=== PATIENT | female | born 1995 | race Caucasian/White ===

== ENCOUNTER 2019-09-26 12:07 | Emergency (ER) | payer OTHER, SELFPAY ==
--- NOTE | ~2019-09-26 | XR_ITS ---
EXAMINATION: XR chest 2V EXAM DATE: 09/26/2019 12:42 INDICATION: Shortness of breath, feeling lightheaded. TECHNIQUE: Frontal and lateral projections of the chest obtained and reviewed. There is no prior suhail dy for comparison. FINDINGS: The lungs are clear. There are no pleural effusions. The cardiomediastinal silhouette is within normal limits. There is no pneumothorax suspected. The bones and soft tissues are unremarkab le. IMPRESSION: Normal chest x-ray exam. Reviewed, dictated and finalized at location A. IMPRESSION: Normal chest x-ray exam.
[2019-09-26 12:11] VITALS: BP 110/88; PULSE 119; RESP 22; TEMP 36.6; O2SAT 100
--- NOTE | 2019-09-26 12:15 | PC.NURSE ---
Pt refusing IV, states she will allow for labs to be drawn only at this time.
[2019-09-26 12:16] VITALS: PULSE 119
--- NOTE | 2019-09-26 12:30 | ECG_ITS ---
Measurements Intervals [place] Rate: 101 P: 56 AR: 175 QRS: 37 QRSD: 86 T: 3 QT: 333 QTc: 433 Interpretive Statements SINUS TACHYCARDIA ST-T WAVE ABNORMALITY IN ANTERIOR LEADS- CONSIDER ISCHEMIA BASELINE WANDER- II, III ABNORMAL ECG Electronically Signed On 09-26-2019 15:10:44 CDT by Abdirahman Schreiber D.O.
--- NOTE | 2019-09-26 12:37 | ED.SYNCOPE ---
HPI - Syncope General Chief Complaint: Unspecified Stated Complaint: feeling like I'm going to pass out. Time Seen by Provider: 09/26/19 12:13 Source: patient Mode of arrival: ambulatory Limitations: no limitations History of Present Illness HPI narrative: The pt is a 23 y/o female who presents to the ED c/o feeling like she was going to pass out onset 1 day ago. Pt states that she was with her friends at 2300 yesterday when she began to experience this, resolved palpitations, resolved nausea, resolved chills, and MILLS. Pt states that these symptoms resolved after an hour. Pt denies lightheadedness, dizziness, CP, SOB, and fever. MD complaint: almost passed out Onset (ago): day(s) (1) Duration of episode: 60 -: minutes(s) Prodromal symptoms: none Current symptoms: headache, nausea (Resolved) and other (Chills (Resolved), Palpitations (Resolved)) Related Data Home Medications Medication Instructions Recorded Confirmed No Home Medications 09/26/19 09/26/19 Allergies Allergy/AdvReac Type Severity Reaction Status Date / Time No Known Allergies Allergy Verified 09/26/19 12:16 Review of Systems Review of Systems: Narrative: Review of Systems Constitutional: Positive for resolved chills. Negative for fever. Respiratory: Negative for shortness of breath. Cardiovascular: Positive for resolved palpitations. Negative for chest pain. Gastrointestinal: Positive for resolved nausea. Neurological: Positive for resolved feeling as if going to pass out and headache. Negative for lightheadedness and dizziness. All systems reviewed & are unremarkable except as noted in HPI and below PMFSH Past Medical History Medical History (Updated 09/27/19 @ 00:00 by Yair Samson) Anxiety Depression Migraines Surgical History Surgical History (Updated 09/26/19 @ 13:57 by Victor Hugo Latham) No history of previous surgery Social History Social History (Updated 09/26/19 @ 13:57 by Victor Hugo Latham) Smoking status: Never smoker Gender identity (if verbalized by the patient): Female Exam Narrative: Exam Narrative: Constitutional: Appears well-developed. No distress. HENT: Head: Normocephalic. Nose: Nose normal. Mouth/Throat: Oropharynx is clear and moist. Eyes: Conjunctiva are normal. Neck: Normal range of motion. Neck supple. Cardiovascular: Tachycardic and regular rhythm. Pulmonary/Chest: Effort normal and breath sounds normal. Abdominal: Soft. There is no tenderness. Musculoskeletal: Normal range of motion. No edema. Neurological: Alert and oriented to person, place, and time. Skin: Skin is warm. No pallor. Psychiatric: Normal mood and affect. Course Vital Signs Vital signs: Vital Signs Temperature 36.6 C 09/26/19 12:11 Pulse Rate 119 H 09/26/19 12:11 Respiratory Rate 22 H 09/26/19 12:11 Blood Pressure 110/88 09/26/19 12:11 Pulse Oximetry 100 09/26/19 12:11 Temperature 36.6 C 09/26/19 12:11 Pulse Rate 97 09/26/19 17:49 Respiratory Rate 18 09/26/19 17:49 Blood Pressure 131/78 09/26/19 17:49 Pulse Oximetry 99 09/26/19 17:49 MDM - Syncope Lab Data Result diagrams: 09/26/19 12:55 09/26/19 12:55 Labs: Lab Results 09/26/19 09/26/19 09/26/19 Range/Units 12:53 12:55 12:55 WBC 6.4 (4.5-10.0) K/mm3 RBC 4.89 (4.2-5.4) M/mm3 Hgb 14.5 (12.0-15.0) g/dL Hct 43.7 (37.0-47.0) % MCV 89.4 (80-100) fl MCH 29.7 (26-34) pg MCHC 33.2 (32-36) g/dl RDW 12.6 (11.5-14.5) % Plt Count 338 (150-375) k/mm3 MPV 10.4 (7.4-10.4) fl Immature Gran % (Auto) 0.2 (0-0.5) % Neut % (Auto) 57.2 (45.5-73.1) % Lymph % (Auto) 36.0 (18.3-44.2) % Levy % (Auto) 5.7 (2.6-8.5) % Eos % (Auto) 0.3 (0-4.4) % Baso % (Auto) 0.6 (0.2-1.2) % Lymph # (Auto) 2.32 (0.9-3.2) K/mm3 Levy # (Auto) 0.4 (0.1-0.6) K/mm3 Eos # (Auto) 0.0 (0-0.3) K/mm3 Baso # (Auto) 0.0 (0.0-0
[2019-09-26 13:02] LABS: Basophils Percent Auto 0.6 % (0.2-1.2); Eosinophils Percent Auto 0.3 % (0-4.4); Hematocrit 43.7 % (37.0-47.0); Hemoglobin 14.5 g/dL (12.0-15.0); Immature Granulocyte Absolute 0.01 K/mm3 (0.00-0.031); Immature Granulocyte Percent A 0.2 % (0-0.5); Lymphocytes Absolute Auto 2.32 K/mm3 (0.9-3.2); Mean Corpuscular HGB Conc 33.2 g/dl (32-36); Mean Corpuscular Hemoglobin 29.7 pg (26-34); Mean Corpuscular Volume 89.4 fl (80-100); Mean Platelet Volume 10.4 fl (7.4-10.4); Monocytes Absolute Auto 0.4 K/mm3 (0.1-0.6); Monocytes Percent Auto 5.7 % (2.6-8.5); Neutrophils Absolute Auto 3.7 K/mm3 (1.3-6.7); Neutrophils Percent Auto 57.2 % (45.5-73.1); Platelet Count Result 338 k/mm3 (150-375); Red Blood Count 4.89 M/mm3 (4.2-5.4); Red Cell Distribution Width 12.6 % (11.5-14.5); White Blood Count 6.4 K/mm3 (4.5-10.0)
[2019-09-26 13:17] LABS: Alanine Aminotransferase 14 U/L (4-35); Albumin Level 4.7 g/dL (3.5-5.1); Alkaline Phosphatase 57 U/L (38-126); Glucose 92 mg/dL (65-105)
[2019-09-26 13:18] LABS: Aspartate Amino Transferase 24 U/L (14-36); Bilirubin,Total 0.6 mg/dL (0.2-1.3); Blood Urea Nitrogen 9 mg/dL (7-17); Calcium 9.6 mg/dL (8.4-10.2); Carbon Dioxide 24 mmol/L (22-30); Chloride 104 mmol/L (98-107); Estimated Glomerular Filt Rate > 60; Potassium 3.7 mmol/L (3.4-5.0); Sodium 138 mmol/L (137-145)
[2019-09-26 14:53] VITALS: BP 122/74; PULSE 90; O2SAT 98
[2019-09-26 14:58] LABS: Troponin I < 0.012 ng/mL (0.000-0.034)
[2019-09-26 15:00] LABS: Add Urine Microscopic? YES; Amorphous Sediment Urine Few; Appearance Urine Cloudy (Clear); Bacteria Urine 1+ /hpf; Bilirubin Urine Negative (Negative); Blood Urine Negative (Negative); Color Urine Yellow (Yellow); Glucose Urine UA Negative (Negative); Ketones Urine 2+ mg/dL (Negative); Leukocyte Esterase Ur Trace LEU/UL (Negative); Mucus Urine Heavy /lpf; Nitrate Urine Negative (Negative); Protein Urine 1+ mg/dL (Negative); Specific Grav Ur 1.024 (1.001-1.035); Squamous Epithelial Cell Urine Many /hpf (Few)
--- NOTE | 2019-09-26 16:00 | PC.NURSE ---
pt refuses iv and iv fluids. provider notified
[2019-09-26 16:37] LABS: Troponin I < 0.012 ng/mL (0.000-0.034)
[2019-09-26 17:49] VITALS: BP 131/78; PULSE 97; RESP 18; O2SAT 99
== END 2019-09-26 17:54 | disposition home or self-care (01) ==
PROVIDERS: Emergency Provider Emergency Medicine
DX: R00.2 Palpitations (principal); R42 Dizziness and giddiness; R00.0 Tachycardia, unspecified; R94.31 Abnormal electrocardiogram [ECG] [EKG]
CPT/HCPCS: 36415; 71046; 80053; 81001; 81025; 84484; 85025; 93005; 99284

== ENCOUNTER 2019-10-10 13:31 | Emergency (ER) | payer OTHER, SELFPAY ==
--- NOTE | ~2019-10-10 | XR_ITS ---
EXAMINATION: XR chest 1V portable DATE: 10/10/2019 14:23 INDICATION: Chest pain TECHNIQUE: frontal view of the chest was obtained. COMPARISON: Chest radiograph dated 09/26/2019 FINDINGS: The lungs remain clear with no focal airspace opacities, pulmonary edema, pleural effusion or pneumot horax. The cardiomediastinal silhouette is normal. Visualized bones and soft tissues are unremarkable . IMPRESSION: 1. Normal chest radiograph. Reviewed, dictated and finalized at location B. IMPRESSION: 1. Normal chest radiograph.
[2019-10-10 13:38] VITALS: BP 146/126; PULSE 105; RESP 16; TEMP 36.4; O2SAT 98
--- NOTE | 2019-10-10 13:41 | ECG_ITS ---
Measurements Intervals [place] Rate: 100 P: 56 UT: 155 QRS: 32 QRSD: 94 T: 8 QT: 333 QTc: 429 Interpretive Statements SINUS TACHYCARDIA ST-T WAVE ABNORMALITY IN ANTEROLATERAL LEADS- CONSIDER ISCHEMIA ABNORMAL ECG Electronically Signed On 10-10-2019 15:08:37 CDT by Abdirahman Schreiber D.O.
--- NOTE | 2019-10-10 14:44 | ED.GENADULT ---
HPI - General Adult General Chief complaint: Chest Pain Stated complaint: Chest Pain Time Seen by Provider: 10/10/19 13:34 Source: patient Mode of arrival: ambulatory Limitations: no limitations History of Present Illness HPI narrative: Patient is a 23-year-old female who presents to emergency department for evaluation of pain across the chest is an aching pain nothing makes it better or worse noted the pain comes and goes has had similar occurrences in the past of unknown etiology patient does note that she does have anxiety which could be an etiology patient denies any URI symptoms dyspnea or other complaints and on arrival is resting comfortably in the room and has not taken anything for her symptoms Related Data Home Medications Medication Instructions Recorded Confirmed No Home Medications 09/26/19 09/26/19 Allergies Allergy/AdvReac Type Severity Reaction Status Date / Time No Known Allergies Allergy Verified 09/26/19 12:16 Review of Systems Review of Systems: All systems reviewed & are unremarkable except as noted in HPI and below PMFSH Past Medical History Medical History Anxiety Depression Migraines Surgical History Surgical History No history of previous surgery Social History Social History Smoking status: Never smoker Gender identity (if verbalized by the patient): Female Exam Narrative: Exam Narrative: GENERAL: Well-appearing, well-nourished, and in no acute distress. HEAD: Normocephalic, atraumatic. EYES: PERRLA and EOMI. ENT: Nares clear, no rhinorrhea or epistaxis. Mucous membranes moist. CHEST: Clear to auscultation. No respiratory distress. No wheezes rales or rhonchi HEART: Regular rate and rhythm. No murmur heard. Normal peripheral pulses. ABDOMEN: Soft, nontender, nondistended EXTREMITIES: Normal range of motion. No edema. SKIN: Warm, dry, no rash. NEURO: No focal deficits. Alert and oriented x3. PSYCH: Normal mood and affect. Course Course Emergency Course: Patient in the room in no distress aware of case findings treatment plan and diagnosis agreeing to follow-up as directed Vital Signs Vital signs: Vital Signs Temperature 97.5 F L 10/10/19 13:38 Pulse Rate 105 H 10/10/19 13:38 Respiratory Rate 16 10/10/19 13:38 Blood Pressure 146/126 H 10/10/19 13:38 Pulse Oximetry 98 10/10/19 13:38 Temperature 97.5 F L 10/10/19 13:38 Pulse Rate 105 H 10/10/19 13:38 Respiratory Rate 16 10/10/19 13:38 Blood Pressure 146/126 H 10/10/19 13:38 Pulse Oximetry 98 10/10/19 13:38 Medical Decision Making MDM Narrative Medical decision making narrative: Patients EKG and chest x-ray without high risk changes in the room in no distress resting comfortably patient's prior visit was unremarkable EKG is unremarkable in comparison to prior visit Vital Signs Vital Signs: Vital Signs Temperature 97.5 F L 10/10/19 13:38 Pulse Rate 105 H 10/10/19 13:38 Respiratory Rate 16 10/10/19 13:38 Blood Pressure 146/126 H 10/10/19 13:38 Pulse Oximetry 98 10/10/19 13:38 Temperature 97.5 F L 10/10/19 13:38 Pulse Rate 105 H 10/10/19 13:38 Respiratory Rate 16 10/10/19 13:38 Blood Pressure 146/126 H 10/10/19 13:38 Pulse Oximetry 98 10/10/19 13:38 Imaging Data Radiologist's impression: ITS Impressions Chest X-Ray 10/10/19 14:26 IMPRESSION: 1. Normal chest radiograph. ECG Data EKG #1: ECG completion date: 10/10/19 ECG completion time: 13:38 EKG Interpretation: tachycardia, non-specific ST changes, normal QRS and NL axis Discharge Plan Discharge Clinical Impression: Chest pain Patient Disposition: Home, Self-Care Condition: Stable Instructions: Antibiotic Form, Chest Pain (ED) Additional Instructions: Follow up with your
[2019-10-10 15:19] VITALS: BP 92/53; PULSE 66; RESP 14; O2SAT 96
[2019-10-10 15:22] VITALS: BP 92/53; PULSE 93; RESP 20; O2SAT 96
== END 2019-10-10 15:25 | disposition home or self-care (01) ==
PROVIDERS: Emergency Provider Emergency Medicine
DX: R07.9 Chest pain, unspecified (principal); R00.0 Tachycardia, unspecified
CPT/HCPCS: 71045; 93005; 99283

== ENCOUNTER 2019-10-11 13:29 | Emergency (ER) | payer OTHER, SELFPAY ==
--- NOTE | ~2019-10-11 | XR_ITS ---
XR chest 2V DATE: 10/11/2019 14:06 INDICATION: Midsternal chest pain. Bilateral hand numbness. TECHNIQUE: PA and lateral views COMPARISON: 10/10/2019 portable AP chest at 1415 hours FINDINGS: Normal heart size. No hilar or mediastinal enlargement. No pulmonary infiltrate or consolid ation, pleural effusion or pulmonary vascular congestion or pneumothorax. IMPRESSION: No active cardiopulmonary disease Reviewed, dictated and finalized at location A.
[2019-10-11 13:31] VITALS: BP 140/66; PULSE 79; RESP 20; TEMP 36.3; O2SAT 100
--- NOTE | 2019-10-11 13:43 | ECG_ITS ---
Measurements Intervals [place] Rate: 85 P: 31 HI: 141 QRS: 4 QRSD: 92 T: 22 QT: 361 QTc: 431 Interpretive Statements SINUS RHYTHM WITH SINUS ARRHYTHMIA ST-T WAVE ABNORMALITY IN ANTERIOR LEADS- CONSIDER ISCHEMIA BASELINE WANDER- II, III ABNORMAL ECG Electronically Signed On 10-11-2019 14:46:10 CDT by Abdirahman Schreiber D.O.
--- NOTE | 2019-10-11 13:44 | ED.GENADULT ---
HPI - General Adult General Chief complaint: Unspecified Stated complaint: aline hand numbness/chest pain Time Seen by Provider: 10/11/19 13:39 Source: patient Mode of arrival: ambulatory Limitations: no limitations History of Present Illness HPI narrative: A 23 y/o female presents to the ED with c/o bilateral hand numbness. Pt states that she was seen at [facility] yesterday for the same symptoms. She adds that her symptoms started on 09/08/19 and have been constant since. Pt reports MILLS and CP that radiates to her neck, back, and shoulder, but denies cough, congestion, N/V, and fever. She took Tylenol last night for her symptoms with no relief. MD complaint: bilateral hand numbness Onset (ago): day(s) (2) Location: upper extremity (bilateral hand) Severity: similar to prior episodes Quality: other (numbness) Pain Consistency: constant Relieving factors: none Associated symptoms: chest pain (radiates to neck, back, shoulder) and headaches Related Data Home Medications Medication Instructions Recorded Confirmed No Home Medications 09/26/19 09/26/19 Allergies Allergy/AdvReac Type Severity Reaction Status Date / Time No Known Allergies Allergy Verified 09/26/19 12:16 Review of Systems Review of Systems: All systems reviewed & are unremarkable except as noted in HPI and below Constitutional: Constitutional: Denies fever(s) ENT: Denies nasal congestion Cardiovascular: Cardiovascular: Reports chest pain (radiates to neck, back, shoulder) Respiratory: Respiratory: Denies cough Gastrointestinal: Gastrointestinal: Denies nausea and Denies vomiting Neurologic: Reports headache(s) and Reports numbness (bilateral hand) PMFSH Past Medical History Medical History Anxiety Depression Migraines Surgical History Surgical History No history of previous surgery Social History Social History Smoking status: Never smoker Gender identity (if verbalized by the patient): Female Exam Const: General: healthy appearing and no acute distress Nutritional Appearance: well nourished HENMT: Mouth: Yes lip normal and Yes moist mucous membranes Eyes: Conjunctivae: conjunctivae normal Pupils: Equal, round and reactive pupils present Resp: Effort & Inspection: normal respiratory effort Auscultation: clear to auscultation bilaterally Cardio: Jugular venous distension: no JVD Rate: regular rate Rhythm: regular rhythm Heart sounds: no murmurs GI: GI Palp: Yes Soft to palpation and No Tenderness to palpation present (GI) Auscultation: normal bowel sounds Back/Spine/Pelvis: Back: other (full ROM) Skin: General skin exam: normal color, dry skin and other (warm) Neuro: General: patient oriented x3 (alert) Speech: normal speech Extrem: General: full ROM Psych: Mental Status: mental status grossly normal Affect: Anxious affect present Course Vital Signs Vital signs: Vital Signs Temperature 36.3 C L 10/11/19 13:31 Pulse Rate 79 10/11/19 13:31 Respiratory Rate 20 10/11/19 13:31 Blood Pressure 140/66 10/11/19 13:31 Pulse Oximetry 100 10/11/19 13:31 Temperature 36.3 C L 10/11/19 13:31 Pulse Rate 76 10/11/19 15:13 Respiratory Rate 18 10/11/19 15:13 Blood Pressure 122/78 10/11/19 15:13 Pulse Oximetry 98 10/11/19 15:13 Medical Decision Making MDM Narrative Medical decision making narrative: Symptoms seem to be most consistent with anxiety. EKG is abnormal, but unchanged from prior visits. x-ray and labs reassuring. Vital Vital Signs Vital Signs: Vital Signs Temperature 36.3 C L 10/11/19 13:31 Pulse Rate 79 10/11/19 13:31 Respiratory Rate 20 10/11/19 13:31 Blood Pressure 140/66 10/11/19 13:31 Pulse Oximetry 100 10/11/19 13:31 Temperature 36.3 C L 10/11/19 13:31 Pulse Rate 76 10/11/19 15:13 Respiratory Ra
[2019-10-11 13:55] LABS: Basophils Percent Auto 0.6 % (0.2-1.2); Eosinophils Percent Auto 0.3 % (0-4.4); Hematocrit 44.2 % (37.0-47.0); Hemoglobin 14.6 g/dL (12.0-15.0); Immature Granulocyte Absolute 0.02 K/mm3 (0.00-0.031); Immature Granulocyte Percent A 0.3 % (0-0.5); Lymphocytes Absolute Auto 1.66 K/mm3 (0.9-3.2); Lymphocytes Percent Auto 25.3 % (18.3-44.2); Mean Corpuscular Hemoglobin 29.9 pg (26-34); Mean Corpuscular Volume 90.4 fl (80-100); Mean Platelet Volume 10.9 fl (7.4-10.4); Monocytes Absolute Auto 0.5 K/mm3 (0.1-0.6); Monocytes Percent Auto 7.5 % (2.6-8.5); Neutrophils Absolute Auto 4.3 K/mm3 (1.3-6.7); Platelet Count Result 292 k/mm3 (150-375); Red Blood Count 4.89 M/mm3 (4.2-5.4); Red Cell Distribution Width 13.2 % (11.5-14.5); White Blood Count 6.6 K/mm3 (4.5-10.0)
[2019-10-11 14:05] LABS: INR 0.9; Prothrombin Time 12.3 Seconds (11.1-14.7)
[2019-10-11 14:06] LABS: Blood Urea Nitrogen 8 mg/dL (7-17); Calcium 9.6 mg/dL (8.4-10.2); Carbon Dioxide 26 mmol/L (22-30); Chloride 106 mmol/L (98-107); Estimated Glomerular Filt Rate > 60; Glucose 102 mg/dL (65-105); Partial Thromboplastin Time 31.5 SECONDS (22.3-36.8); Potassium 3.6 mmol/L (3.4-5.0); Sodium 140 mmol/L (137-145)
[2019-10-11 14:18] LABS: Troponin I < 0.012 ng/mL (0.000-0.034)
[2019-10-11 15:13] VITALS: BP 122/78; PULSE 76; RESP 18; O2SAT 98
== END 2019-10-11 15:16 | disposition home or self-care (01) ==
PROVIDERS: Emergency Provider Emergency Medicine
DX: R07.89 Other chest pain (principal); R94.31 Abnormal electrocardiogram [ECG] [EKG]
CPT/HCPCS: 36415; 71046; 80048; 84484; 85025; 85610; 85730; 93005; 99284

== ENCOUNTER 2020-02-06 09:57 | Outpatient (CLI) | payer OTHER, SELFPAY ==
--- NOTE | ~2020-02-06 | US_ITS ---
EXAMINATION: US OB <= 14 weeks fetus DATE: 02/06/2020 11:00 INDICATION: Routine care, first trimester TECHNIQUE: Real-time pelvic transabdominal and transvaginal ultrasound was performed. COMPARISON: None. FINDINGS: The uterus measures 10.0 x 7.5 x 9.0 cm. There is an intrauterine gestational sac. A yolk sac is identified. heart motion is identified measuring 165 beats per minute (bpm) by M-mode Do ppler. The crown rump length measures 5.7 cm , which correlates with an estimated gestational a ge of 12 weeks and 2 day(s) (+/-) 8 day(s). The right ovary measures 4.5 x 2.2 x 3.1 cm. The left ovary measures 2.3 x 0.8 x 2.1 cm. There is nor mal vascular flow in the ovaries. There is no free fluid in the pelvis. IMPRESSION: 1. Live intrauterine with an estimated gestational age of 12 weeks and 2 day(s) (+/-) 8 day (s) and an estimated delivery date of 08/18/2020. Reviewed, dictated and finalized at location B. IMPRESSION: 1. Live intrauterine with an estimated gestational age of 12 weeks an d 2 day(s) (+/-) 8 day(s) and an estimated delivery date of 08/18/2020.
== END 2020-02-06 09:58 | disposition home or self-care (01) ==
PROVIDERS: Visit Provider Physician Assistant
DX: Z34.91 Encounter for supervision of normal pregnancy, unspecified, first trimester (principal); Z3A.12 12 weeks gestation of pregnancy
CPT/HCPCS: 76801

== ENCOUNTER 2020-02-22 18:56 | Emergency (ER) | payer OTHER, SELFPAY ==
--- NOTE | ~2020-02-22 | XR_ITS ---
XR chest 1V portable DATE: 02/22/2020 19:18 INDICATION: Generalized chest pain. Cough, shortness of breath. TECHNIQUE: Portable AP chest on 02/22/2020 at 1917 hours COMPARISON: 10/11/2019 PA and lateral chest FINDINGS: Normal heart size. No pulmonary infiltrate or consolidation, pleural effusion or pulmonary vascular congestion or pneumo thorax. IMPRESSION: No active cardiopulmonary disease Reviewed, dictated and finalized at location A.
[2020-02-22 19:01] VITALS: BP 136/63; PULSE 91; RESP 20; TEMP 36.7; O2SAT 97
[2020-02-22 19:03] VITALS: O2SAT 100
--- NOTE | 2020-02-22 19:04 | ECG_ITS ---
Measurements Intervals [place] Rate: 82 P: 30 RI: 149 QRS: 43 QRSD: 90 T: -6 QT: 359 QTc: 422 Interpretive Statements SINUS RHYTHM WITH SINUS ARRHYTHMIA NONSPECIFIC ST & T-WAVE ABNORMALITY- ANTEROLAT/INF LEADS BORDERLINE ECG Electronically Signed On 02-23-2020 6:55:38 CDT by Abdirahman Schreiber D.O.
--- NOTE | 2020-02-22 19:09 | ED.CHESTPAIN ---
HPI - Chest Pain General Chief Complaint: Chest Pain Stated Complaint: Chest Pain Since Last Night, 14 week Preg Time Seen by Provider: 02/22/20 19:01 Source: patient History of Present Illness HPI narrative: 24 years old white female complaining of intermittent chest pain for the last 2 to 3 days, lightheadedness, numbness and tingling of the feet and hands, a lot of stress lately. Patient is 14 weeks , denying any fever, chills, nausea, vomiting, shortness of breath, back pain, abdominal pain, vaginal bleeding or discharge, urinary symptoms. Patient denies smoking, drinking or using drugs. Patient works at [employer] and lives with her mom Related Data Home Medications Medication Instructions Recorded Confirmed No Home Medications 09/26/19 09/26/19 Allergies Allergy/AdvReac Type Severity Reaction Status Date / Time No Known Allergies Allergy Verified 02/22/20 19:04 Review of Systems Review of Systems: Narrative: CONSTITUTIONAL: Denies fever, chills, or sweats. EYES: Denies visual changes, redness, or discharge. ENT: Denies rhinorrhea, congestion, sore throat, or otalgia. CARDIOVASCULAR: Denies chest pain, palpitations, or edema. RESPIRATORY: Denies cough or dyspnea. GASTROINTESTINAL: Denies abdominal pain, nausea, vomiting, or diarrhea. GENITOURINARY: Denies dysuria or hematuria. SKIN: Denies rash or itching. MUSCULOSKELETAL: Denies back pain, joint pain, or myalgia. NEUROLOGIC: Denies headache, numbness, or weakness. PSYCHIATRIC: Denies anxiety or depression. PMFSH Past Medical History Medical History Anxiety Depression Migraines Surgical History Surgical History No history of previous surgery Social History Social History Smoking status: Never smoker Gender identity (if verbalized by the patient): Female Exam Narrative: Exam Narrative: General appearance: Well-developed, well-nourished Skin: Normal color Head: Normocephalic, nontraumatic Eyes: Clear conjunctiva ENT: Oropharynx normal, ears normal, nose normal Neck: Supple, nontender Chest and respiratory: Airway patent, no respiratory distress, no accessory muscle use Heart: Regular rate/rhythm Abdomen: Soft, nontender, no organomegaly, quiet bowel sounds Vascular: Normal peripheral pulses, normal capillary refill. Musculoskeletal: Normal range of motion, nontender back Neurologic: Alert and oriented ?3, [employer] is normal as tested, no gross motor deficit Course Course Emergency Course: Stable Vital Signs Vital signs: Vital Signs Temperature 36.7 C 02/22/20 19:01 Pulse Rate 91 02/22/20 19:01 Respiratory Rate 20 02/22/20 19:01 Blood Pressure 136/63 02/22/20 19:01 Pulse Oximetry 97 02/22/20 19:01 Temperature 36.7 C 02/22/20 19:01 Pulse Rate 91 02/22/20 19:01 Respiratory Rate 20 02/22/20 19:01 Blood Pressure 136/63 02/22/20 19:01 Pulse Oximetry 100 02/22/20 19:03 MDM - Chest Pain MDM Narrative Medical decision making narrative: Patient is 14 weeks , a lot of stress lately, history of anxiety and depression denying any drugs, does not have any risk factors for coronary disease or pulmonary embolism. Patient denies shortness of breath or leg pain. My plan to get EKG, chest x-ray, UA and heart tone. ECG Data EKG #1: ECG completion date: 02/22/20 ECG completion time: 20:01 Interpretation: Normal sinus rhythm at 82 bpm, nonspecific ST and T wave abnormality, borderline EKG, no old EKG for comparison Critical Care Time Critical Care T
[2020-02-22 20:30] VITALS: BP 118/80; PULSE 80; RESP 18; TEMP 36.8; O2SAT 98
== END 2020-02-22 20:39 | disposition home or self-care (01) ==
LOC: ANHED 20:18
PROVIDERS: Emergency Provider Emergency Medicine
DX: O26.892 Other specified pregnancy related conditions, second trimester (principal); R07.9 Chest pain, unspecified; O99.342 Other mental disorders complicating pregnancy, second trimester; F41.9 Anxiety disorder, unspecified; R94.31 Abnormal electrocardiogram [ECG] [EKG]; Z3A.14 14 weeks gestation of pregnancy
CPT/HCPCS: 71045; 93005; 99283

== ENCOUNTER 2020-03-02 03:44 | Emergency (ER) | payer OTHER, SELFPAY ==
[2020-03-02 03:50] VITALS: BP 107/66; PULSE 85; RESP 16; TEMP 36.6; O2SAT 100
--- NOTE | 2020-03-02 04:58 | ED.ABDPAIN ---
HPI - Abdominal Pain General Chief Complaint: Vaginal Bleeding Stated Complaint: 16 wks preg, vag bld Time Seen by Provider: 03/02/20 04:58 Source: patient Mode of arrival: ambulatory Limitations: no limitations History of Present Illness HPI narrative: Patient is a G1, P0 currently 16 weeks dated by ultrasound who presents for evaluation of vaginal bleeding. Patient reportedly awakened to urinate early this morning, noticed some red, bloody discharge. She denies any pelvic pain, cramping or other loss of fluids. No fever, nausea or vomiting. She reports earlier in the week she did have some dysuria and frequency that she states has resolved. She denies other vaginal discharge. No recent sexual intercourse. No vaginal trauma. Patient's has required intrauterine progesterone. No other known complications per patient. Related Data Allergies Allergy/AdvReac Type Severity Reaction Status Date / Time No Known Allergies Allergy Verified 02/22/20 19:04 Review of Systems Review of Systems: Narrative: CONSTITUTIONAL: Denies fever CARDIOVASCULAR: Denies chest pain RESPIRATORY: Denies cough or dyspnea. GASTROINTESTINAL: Denies abdominal pain : Reports vaginal bleeding SKIN: Denies rash MUSCULOSKELETAL: Denies back pain NEUROLOGIC: Denies headache [facility] Past Medical History Medical History Anxiety Depression Migraines Surgical History Surgical History No history of previous surgery Social History Social History Smoking status: Never smoker Gender identity (if verbalized by the patient): Female Exam Narrative: Exam Narrative: GENERAL: Awake, alert, conversant HEAD: Normocephalic, atraumatic. EYES: PERRLA and EOMI. ENT: Nares clear, no rhinorrhea or epistaxis. Mucous membranes moist. NECK: Supple. CHEST: No respiratory distress, breathing even and non labored HEART: Regular rate, sinus rhythm ABDOMEN:Non distended, non tender : Labia majora and minora normal without lesions. Vagina without blood. No cervical motion tenderness. No adnexal tenderness or fullness bilaterally. Discharge present. EXTREMITIES: Normal range of motion. No edema. SKIN: Warm, dry, no rash. NEURO:No focal deficits. Alert and oriented x3 Course Vital Signs Vital signs: Vital Signs Temperature 36.6 C 03/02/20 03:50 Pulse Rate 85 03/02/20 03:50 Respiratory Rate 16 03/02/20 03:50 Blood Pressure 107/66 03/02/20 03:50 Pulse Oximetry 100 03/02/20 03:50 Temperature 36.6 C 03/02/20 03:50 Pulse Rate 85 03/02/20 03:50 Respiratory Rate 16 03/02/20 03:50 Blood Pressure 107/66 03/02/20 03:50 Pulse Oximetry 100 03/02/20 03:50 MDM - Abdominal Pain MDM Narrative Medical decision making narrative: Patient presenting for evaluation of light vaginal bleeding in the setting of second trimester . Patient is well-appearing with stable vital signs and a benign abdominal exam. Her cervical exam shows no blood. No cervical motion tenderness or evidence of cervicitis or PID. Patient's hemoglobin and hematocrit is stable. Blood type is B+ does not require any RhoGam administration. heart tones documented in the 160s, with good movement. Urinalysis has some white blood cells present, given she had had some frequency and dysuria I think that we need to treat symptomatically, will cover with Macrobid. Spoke with Dr. Spangler who agreed with management, did not recommend obtaining any sort of formal ultrasound given good heart tones and reassuring laboratory studies. Patient was then discharged to follow-up with Dr. Amos. Differential Diagnosis Differential diagnosis: Likely abdominal pain and other (Threatened miscarriage, cervicitis, UTI) Lab Data Attestation: I reviewed the patient's lab results. Result d
--- NOTE | 2020-03-02 05:45 | PC.NURSE ---
Patient refusing IV stating, I cannot do IVs. I have never needed one anytime I have been here.
[2020-03-02 06:17] LABS: Basophils Percent Auto 0.3 % (0.2-1.2); Eosinophils Absolute Auto 0.1 K/mm3 (0-0.3); Eosinophils Percent Auto 0.8 % (0-4.4); Hematocrit 39.5 % (37.0-47.0); Hemoglobin 13.9 g/dL (12.0-15.0); Immature Granulocyte Absolute 0.01 K/mm3 (0.00-0.031); Immature Granulocyte Percent A 0.1 % (0-0.5); Lymphocytes Absolute Auto 2.32 K/mm3 (0.9-3.2); Lymphocytes Percent Auto 30.7 % (18.3-44.2); Mean Corpuscular HGB Conc 35.2 g/dl (32-36); Monocytes Absolute Auto 0.4 K/mm3 (0.1-0.6); Monocytes Percent Auto 5.6 % (2.6-8.5); Neutrophils Absolute Auto 4.7 K/mm3 (1.3-6.7); Neutrophils Percent Auto 62.5 % (45.5-73.1); Platelet Count Result 292 k/mm3 (150-375); Red Blood Count 4.49 M/mm3 (4.2-5.4); Red Cell Distribution Width 12.8 % (11.5-14.5); White Blood Count 7.6 K/mm3 (4.5-10.0)
[2020-03-02 06:21] LABS: Add Urine Microscopic? YES; Appearance Urine Clear (Clear); Bilirubin Urine Negative (Negative); Blood Urine 1+ (Negative); Color Urine Yellow (Yellow); Glucose Urine UA Negative (Negative); Ketones Urine Negative (Negative); Leukocyte Esterase Ur Negative LEU/UL (Negative); Mucus Urine Few /lpf; Nitrate Urine Negative (Negative); Protein Urine Negative (Negative); Specific Grav Ur 1.009 (1.001-1.035); Squamous Epithelial Cell Urine Rare /hpf (Few); Urobilinogen Urine Negative mg/dL (<2.0)
[2020-03-02 06:50] VITALS: BP 107/59; PULSE 85; RESP 16; O2SAT 99
[2020-03-02 06:51] VITALS: BP 102/59; BP 103/57; PULSE 56; PULSE 93
== END 2020-03-02 07:05 | disposition home or self-care (01) ==
PROVIDERS: Emergency Provider Emergency Medicine
DX: O20.9 Hemorrhage in early pregnancy, unspecified (principal); Z3A.16 16 weeks gestation of pregnancy
CPT/HCPCS: 36415; 81001; 84702; 85025; 85461; 87070; 87491; 87591; 87808; 99284

== ENCOUNTER 2020-03-25 18:44 | Emergency (ER) | payer OTHER, SELFPAY ==
--- NOTE | ~2020-03-25 | XR_ITS ---
EXAMINATION: XR chest 2V DATE: 03/25/2020 19:39 INDICATION: Midsternal chest pain. TECHNIQUE: Frontal and lateral views of the chest were obtained. COMPARISON: Chest single view 02/22/2020 FINDINGS: The chest demonstrates clear lungs without pneumonia, pleural effusion, or pneumothorax. Th e heart size is normal. IMPRESSION: 1. No acute cardiopulmonary disease. Reviewed, dictated and finalized at location A.
--- NOTE | 2020-03-25 18:47 | ECG_ITS ---
Measurements Intervals [place] Rate: 81 P: 23 MO: 158 QRS: 33 QRSD: 83 T: -4 QT: 360 QTc: 418 Interpretive Statements SINUS RHYTHM WITH SINUS ARRHYTHMIA BORDERLINE ST-T WAVE ABNORMALITY- ANTEROLAT/INF LEADS BASELINE WANDER- V4 BORDERLINE ECG Electronically Signed On 03-26-2020 6:59:09 CDT by Abdirahman Schreiber D.O.
[2020-03-25 18:49] VITALS: BP 112/72; PULSE 80; RESP 18; TEMP 36.2; O2SAT 100
--- NOTE | 2020-03-25 19:03 | ED.CHESTPAIN ---
HPI - Chest Pain General Chief Complaint: Chest Pain Stated Complaint: chest pains and im (20weeks) Time Seen by Provider: 03/25/20 19:02 Source: patient Mode of arrival: ambulatory Limitations: no limitations History of Present Illness HPI narrative: Patient is a 24-year-old female G1, P0 currently 20 weeks who presents to the emergency department for evaluation of chest pain. Pain is currently resolved. Pain has been intermittent over the past 48 hours, described as dull, aching in nature at times there is a sharp component to it. She denies concurrent back pain, nausea, vomiting, shortness of breath. No fever, rhinorrhea or cough. She denies any pain with a deep breath. She denies leg swelling, calf pain or redness. No history of coagulopathy or history of previous DVT. No recent long car or air travel. This has been uncomplicated thus far. She follows with Dr. Amos. Pt denies any vaginal bleeding, discharge, loss of fluids. No contraction like pain or abdominal pain. Pt feeling baby movement. Related Data Home Medications Medication Instructions Recorded Confirmed aspirin 03/25/20 03/25/20 folic acid 03/25/20 Allergies Allergy/AdvReac Type Severity Reaction Status Date / Time No Known Allergies Allergy Verified 03/25/20 18:45 Review of Systems Review of Systems: Narrative: CONSTITUTIONAL: Denies fever, chills, or sweats. ENT: Denies rhinorrhea, congestion, sore throat, or otalgia. CARDIOVASCULAR: Denies current chest pain, palpitations, or edema. RESPIRATORY: Denies cough or dyspnea. GASTROINTESTINAL: Denies abdominal pain, nausea, vomiting, or diarrhea. GENITOURINARY: Denies dysuria or hematuria. SKIN: Denies rash or itching. MUSCULOSKELETAL: Denies back pain, joint pain, or myalgia. NEUROLOGIC: Denies headache, numbness, or weakness. [facility] Social History Social History Smoking status: Never smoker Gender identity (if verbalized by the patient): Female Exam Narrative: Exam Narrative: GENERAL: Awake, alert, conversant HEAD: Normocephalic, atraumatic. EYES: PERRLA and EOMI. ENT: Nares clear, no rhinorrhea or epistaxis. Mucous membranes moist. NECK: Supple. CHEST: No respiratory distress, breathing even and non labored, no chest wall pain HEART: Regular rate, sinus rhythm ABDOMEN:Non distended, non tender EXTREMITIES: Normal range of motion. No edema. No calf tenderness bilaterally. No erythema or rash. Negative Claus sign. SKIN: Warm, dry, no rash. NEURO:No focal deficits. Alert and oriented x3 Course Vital Signs Vital signs: Vital Signs Temperature 36.2 C L 03/25/20 18:49 Pulse Rate 80 03/25/20 18:49 Respiratory Rate 18 03/25/20 18:49 Blood Pressure 112/72 03/25/20 18:49 Pulse Oximetry 100 03/25/20 18:49 Temperature 36.2 C L 03/25/20 18:49 Pulse Rate 94 03/25/20 21:21 Respiratory Rate 16 03/25/20 21:21 Blood Pressure 111/98 H 03/25/20 21:21 Pulse Oximetry 98 03/25/20 21:21 MDM - Chest Pain MDM Narrative Medical decision making narrative: Patient presented for evaluation of chest pain in the setting of . No current chest pain in the ER. EKG with nonspecific ST segment changes. On EKG, no ST elevation or depression. No findings consistent of pericarditis. No infectious symptoms concerning for myocarditis. No evidence of pneumonia no cover type features. No concerning type symptoms. Patient with good heart tones, good movement, no vaginal bleeding, contraction-like pain or loss of fluids. Patient's EKG and labs are without significant high risk changes. Cardiac risk factors reviewed. Patient is felt low risk for ACS and reasonable for further risk stratification testing as an outpatient. Pain was not sudden or maximal or onset without tearing or ripping quality. No other signs or symptoms to suggest aortic dissection. A low risk well'
[2020-03-25] MEDS: ASPIRIN 81 MG CHEWABLE TABLET 324 MG PO (19:14)
--- NOTE | 2020-03-25 19:15 | PC.NURSE ---
pt refusing PIV at this time. continues to rest on stretcher; will continue to monitor pt for baseline status changes. pt remains on monitor.
[2020-03-25 19:17] LABS: Basophils Percent Auto 0.3 % (0.2-1.2); Eosinophils Absolute Auto 0.1 K/mm3 (0-0.3); Eosinophils Percent Auto 0.7 % (0-4.4); Hematocrit 35.5 % (37.0-47.0); Hemoglobin 12.5 g/dL (12.0-15.0); Immature Granulocyte Absolute 0.02 K/mm3 (0.00-0.031); Immature Granulocyte Percent A 0.2 % (0-0.5); Lymphocytes Absolute Auto 2.46 K/mm3 (0.9-3.2); Mean Corpuscular HGB Conc 35.2 g/dl (32-36); Mean Corpuscular Hemoglobin 31.4 pg (26-34); Mean Corpuscular Volume 89.2 fl (80-100); Mean Platelet Volume 10.6 fl (7.4-10.4); Monocytes Absolute Auto 0.5 K/mm3 (0.1-0.6); Monocytes Percent Auto 5.5 % (2.6-8.5); Neutrophils Absolute Auto 5.7 K/mm3 (1.3-6.7); Neutrophils Percent Auto 65.3 % (45.5-73.1); Platelet Count Result 319 k/mm3 (150-375); Red Blood Count 3.98 M/mm3 (4.2-5.4); White Blood Count 8.8 K/mm3 (4.5-10.0)
[2020-03-25 19:25] VITALS: BP 106/80; PULSE 79; RESP 18; O2SAT 96
[2020-03-25 19:28] LABS: Anion Gap 8 mmol/L (8-16); Blood Urea Nitrogen 4 mg/dL (7-17); Calcium 9.6 mg/dL (8.4-10.2); Carbon Dioxide 25 mmol/L (22-30); Chloride 102 mmol/L (98-107); Estimated Glomerular Filt Rate > 60; Glucose 90 mg/dL (65-105); Potassium 3.4 mmol/L (3.4-5.0); Sodium 135 mmol/L (137-145)
[2020-03-25 19:29] LABS: INR 0.9; Prothrombin Time 12.2 Seconds (11.1-14.7)
[2020-03-25 19:30] LABS: Partial Thromboplastin Time 29.4 SECONDS (22.3-36.8)
[2020-03-25 19:32] LABS: D Dimer 0.41 ug/mL (<0.48)
[2020-03-25 19:40] LABS: Troponin I < 0.012 ng/mL (0.000-0.034)
[2020-03-25 20:01] VITALS: PULSE 71
[2020-03-25 21:21] VITALS: BP 111/98; PULSE 94; RESP 16; O2SAT 98
== END 2020-03-25 21:21 | disposition home or self-care (01) ==
PROVIDERS: Emergency Medicine; Emergency Provider Emergency Medicine
DX: O99.89 Other specified diseases and conditions complicating pregnancy, childbirth and the puerperium (principal); R07.89 Other chest pain; Z3A.20 20 weeks gestation of pregnancy
CPT/HCPCS: 36415; 71046; 80048; 84484; 85025; 85380; 85610; 85730; 93005; 99284; A9270

== ENCOUNTER 2020-03-26 07:05 | Outpatient (CLI) | payer OTHER, SELFPAY ==
--- NOTE | ~2020-03-26 | US_ITS ---
EXAMINATION:US venous doppler LE BI INDICATION:22 weeks . Atypical chest pain. Leg swelling. TECHNIQUE: Multiple grayscale, color flow and Doppler images of the right and left lower extremity de ep venous systems were obtained and reviewed. COMPARISON:No prior studies for comparison. FINDINGS: The common femoral, superficial femoral and popliteal veins demonstrate normal respiratory variation, augmentation and compressibility. Color flow is also seen within the posterior tibial, pe roneal, greater saphenous and profunda veins. IMPRESSION: 1: No lower extremity deep venous thrombosis. Reviewed, dictated and finalized at location B.
== END 2020-03-26 07:06 | disposition home or self-care (01) ==
PROVIDERS: PCP Obstetrics & Gynecology; Visit Provider Emergency Medicine
DX: R07.89 Other chest pain (principal); Z34.92 Encounter for supervision of normal pregnancy, unspecified, second trimester; Z3A.22 22 weeks gestation of pregnancy
CPT/HCPCS: 93970

== ENCOUNTER 2020-04-07 09:41 | Outpatient (CLI) | payer OTHER, SELFPAY ==
--- NOTE | ~2020-04-07 | US_ITS ---
EXAMINATION: US OB /maternal detail EXAM DATE: 04/07/2020 10:30 INDICATION: care. 2nd trimester. TECHNIQUE: Pelvic obstetrical transabdominal sonogram was performed by a technologist. There are mu ltiple grayscale and Doppler images available for interpretation. Comparison is made to prior examina tion from 02/06/2020. FINDINGS: There is a single fetus identified in breech presentation with a heart rate of 145 beats pe r minute. The placenta is located in the anterior position. There is no sonographic evidence of retr oplacental hemorrhage identified. There is subjectively expected amount of amniotic fluid. Cervical canal measures 4.4 cm without funneling. BIOMETRIC DATA: Biparietal diameter (BPD): 4.5cm ----------------> 19 weeks 3 days. Head circumference (HC): 18.5 cm ----------------> 20 weeks 6 days. Abdominal circumference (AC): 16.3 cm ----------> 21 weeks 3 days. Femur length (FL): 3.6 cm --------------------------> 21 weeks 3 days. These measurements are concordant. HC/AC ratio is 1.14 (The 5th -- 95th percentile range is 1.06-1.25. Estimated weight is 411 g +/- 62 g. This is the 60 percentile when the currently reported clin ical gestation age 21 weeks 0 days, clinical estimated date of delivery ([facility]) 08/18/2020 is used. estimated gestational age based on measurements from this exam is 20 weeks 6 days, with an kenzie mated date of delivery ([facility]) 08/19. ANATOMIC SURVEY: The following anatomy is identified and is sonographically normal in appearance: Cerebral ventricles Cerebellum Cisterna magna Nuchal fold: 6 mm (upper limits of normal). CTL-spine Four-chamber heart Diaphragm Stomach Kidneys Bladder Three-vessel cord Cord insertion IMPRESSION: 1. Single fetus in vertex presentation with heart rate 145 beats per minute. 2. Estimated weight of 411 grams, 60th percentile using the currently reported clinical gestat ion age of 21 weeks 0 days, KT(OPE) 08/18. 3. Normal anatomic survey. Reviewed, dictated and finalized at location A. IMPRESSION: 1. Single fetus in vertex presentation with heart rate 145 beats per minute. 2. Estimated weight of 411 grams, 60th percentile using the currently re ported clinical gestation age of 21 weeks 0 days, KT(OPE) 08/18. 3. Normal anatomic survey.
== END 2020-04-07 09:42 | disposition home or self-care (01) ==
PROVIDERS: PCP Obstetrics & Gynecology; Visit Provider Physician Assistant
DX: Z34.92 Encounter for supervision of normal pregnancy, unspecified, second trimester (principal); Z3A.21 21 weeks gestation of pregnancy
CPT/HCPCS: 76805

== ENCOUNTER 2020-05-03 17:49 | Emergency (ER) | payer OTHER, SELFPAY ==
[2020-05-03] VITALS (9 sets, daily range): BP systolic 98–123; BP diastolic 65–68; PULSE 76–97; RESP 14–21; TEMP 36.4; O2SAT 97–100
--- NOTE | ~2020-05-03 | XR_ITS ---
EXAMINATION: XR chest 2V 05/03/2020 18:39 INDICATION: Intermittent shortness of breath. Chest pain. PROCEDURE: 2 view chest COMPARISON: Comparison to multiple prior studies sequentially, with oldest reviewed study dated 09/2019. FINDINGS: The lungs are clear. The cardiomediastinal silhouette is within normal limits. There are no pleural effusions. There is no pneumothorax suspected. IMPRESSION: 1: NO ACUTE CARDIOPULMONARY DISEASE. Reviewed, dictated and finalized at location A.
--- NOTE | 2020-05-03 17:51 | ECG_ITS ---
Measurements Intervals [place] Rate: 83 P: 26 DE: 157 QRS: 27 QRSD: 88 T: -12 QT: 356 QTc: 419 Interpretive Statements SINUS RHYTHM INCOMPLETE RIGHT BUNDLE BRANCH BLOCK NONSPECIFIC ST & T-WAVE ABNORMALITY- ANTEROLAT/INF LEADS BORDERLINE ECG Electronically Signed On 05-03-2020 20:15:38 CDT by Abdirahman Schreiber D.O.
--- NOTE | 2020-05-03 18:16 | PC.NURSE ---
PT REFUSING IV AT THIS TIME.
[2020-05-03 18:17] LABS: Basophils Percent Auto 0.2 % (0.2-1.2); Eosinophils Absolute Auto 0.1 K/mm3 (0-0.3); Eosinophils Percent Auto 0.7 % (0-4.4); Hemoglobin 11.7 g/dL (12.0-15.0); Immature Granulocyte Absolute 0.03 K/mm3 (0.00-0.031); Immature Granulocyte Percent A 0.3 % (0-0.5); Lymphocytes Absolute Auto 2.17 K/mm3 (0.9-3.2); Lymphocytes Percent Auto 25.1 % (18.3-44.2); Mean Corpuscular HGB Conc 34.4 g/dl (32-36); Mean Corpuscular Hemoglobin 31.8 pg (26-34); Mean Corpuscular Volume 92.4 fl (80-100); Mean Platelet Volume 10.4 fl (7.4-10.4); Monocytes Absolute Auto 0.5 K/mm3 (0.1-0.6); Monocytes Percent Auto 5.5 % (2.6-8.5); Neutrophils Absolute Auto 5.9 K/mm3 (1.3-6.7); Neutrophils Percent Auto 68.2 % (45.5-73.1); Platelet Count Result 306 k/mm3 (150-375); Red Blood Count 3.68 M/mm3 (4.2-5.4); Red Cell Distribution Width 13.2 % (11.5-14.5); White Blood Count 8.7 K/mm3 (4.5-10.0)
--- NOTE | 2020-05-03 18:21 | PC.NURSE ---
VERBAL ORDER FROM JUSTINE SCOTT TO HOLD ASA.
[2020-05-03 18:28] LABS: INR 0.9
[2020-05-03 18:30] LABS: Anion Gap 8 mmol/L (8-16); Blood Urea Nitrogen 4 mg/dL (7-17); Calcium 9.2 mg/dL (8.4-10.2); Carbon Dioxide 25 mmol/L (22-30); Chloride 105 mmol/L (98-107); Estimated Glomerular Filt Rate > 60; Glucose 92 mg/dL (65-105); Potassium 3.4 mmol/L (3.4-5.0); Sodium 138 mmol/L (137-145)
--- NOTE | 2020-05-03 18:33 | ED.CHESTPAIN ---
HPI - Chest Pain General Chief Complaint: Chest Pain Stated Complaint: chest pains x 1 day Time Seen by Provider: 05/03/20 18:08 History of Present Illness HPI narrative: Patient is a 24-year-old female who presents ER with chest pain. Central pressure that is worse when she lays down and when she eats. Also associated with increased sensation of heartburn. Occasionally she will have some pain that goes left side. No association with movement or breathing. No alleviating factors that she is noted. She is feeling the baby move. She is 6-1/2 months . No vaginal bleeding/leakage of fluid/dysuria/urinary frequency. She has no runny nose/sore throat/productive cough. No known infectious contacts. Related Data Home Medications Medication Instructions Recorded Confirmed aspirin 03/25/20 03/25/20 folic acid 03/25/20 Allergies Allergy/AdvReac Type Severity Reaction Status Date / Time No Known Allergies Allergy Verified 03/25/20 18:45 Review of Systems Review of Systems: All systems reviewed & are unremarkable except as noted in HPI and below Constitutional: Constitutional: Denies chills, Denies fever(s) and Denies weakness ENT: Denies nasal congestion and Denies sore throat Cardiovascular: Cardiovascular: Reports chest pain, Denies rapid heart rate and Denies radiating jaw, neck or arm pain Respiratory: Respiratory: Denies cough, Denies dyspnea and Denies wheezing Gastrointestinal: Gastrointestinal: Denies abdominal pain, Reports heartburn, Denies diarrhea, Denies nausea and Denies vomiting Genitourinary: Genitourinary: Denies abnormal vaginal bleeding, Denies nocturia, Denies dysuria and Denies vaginal discharge PMFSH Past Medical History Medical History (Updated 05/03/20 @ 20:31 by Cabrera Ely MD) Anxiety Depression Migraines Surgical History Surgical History No history of previous surgery Social History Social History Smoking status: Never smoker Gender identity (if verbalized by the patient): Female Exam Narrative: Exam Narrative: GENERAL: Well-appearing, well-nourished, and in no acute distress. HEAD: Normocephalic, atraumatic. ENT: Mucous membranes moist. No pharyngeal erythema or tonsillar exam. CHEST: Clear to auscultation. No respiratory distress. HEART: Regular rate and rhythm. Normal peripheral pulses. ABDOMEN: Soft, nontender, gravid. EXTREMITIES: Normal range of motion. No edema. SKIN: Warm, dry, no rash. NEURO: Alert and oriented x3. Course Course Emergency Course: Unremarkable evaluation. No lower extremity swelling or Homans' sign. Patient without tachycardia or hypoxia or tachypnea. No pleuritic chest pain. DVT/PE felt to be extremely unlikely. Seems like patient may be experiencing reflux or other symptoms related to growth of the uterus. Vital Signs Vital signs: Vital Signs Temperature 97.6 F 05/03/20 17:52 Pulse Rate 85 05/03/20 17:52 Respiratory Rate 16 05/03/20 17:52 Blood Pressure 123/66 05/03/20 17:52 Pulse Oximetry 100 05/03/20 17:52 Temperature 97.6 F 05/03/20 17:52 Pulse Rate 76 05/03/20 19:00 Respiratory Rate 21 H 05/03/20 19:00 Blood Pressure 102/65 05/03/20 18:16 Pulse Oximetry 100 05/03/20 19:00 MDM - Chest Pain Lab Data Result diagrams: 05/03/20 18:07 05/03/20 18:07 Labs: Lab Results 05/03/20 05/03/20 05/03/20 Range/Units 18:07 18:07 18:07 WBC 8.7 (4.5-10.0) K/mm3 RBC 3.68 L (4.2-5.4) M/mm3 Hgb 11.7 L (12.0-15.0) g/dL Hct 34.0 L (37.0-47.0) % MCV 92.4 (80-100) fl MCH 31.8 (26-34) pg MCHC 34.4 (32-36) g/dl RDW 13.2 (11.5-14.5) % Plt Count 306 (150-375) k/mm3 MPV 10.4 (7.4-10.4) fl Immature Gran % (Auto) 0.3 (0-0.5) % Neut % (Auto) 68.2 (45.5-73.1) % Lymph % (Auto) 25.1 (18.3-44.
[2020-05-03 18:35] LABS: Partial Thromboplastin Time 27.5 SECONDS (22.3-36.8)
[2020-05-03 18:41] LABS: Troponin I < 0.012 ng/mL (0.000-0.034)
--- NOTE | 2020-05-03 19:14 | PC.NURSE ---
report to jeff Lu at this time, she has assumed pt care.
--- NOTE | 2020-05-03 19:17 | PC.NURSE ---
Assumed care of pt. at this time. Report from BERNY Leal
== END 2020-05-03 20:40 | disposition home or self-care (01) ==
PROVIDERS: Family Medicine; Emergency Provider Emergency Medicine; PCP Obstetrics & Gynecology
DX: O26.892 Other specified pregnancy related conditions, second trimester (principal); R07.89 Other chest pain; O99.612 Diseases of the digestive system complicating pregnancy, second trimester; K21.9 Gastro-esophageal reflux disease without esophagitis; Z79.82 Long term (current) use of aspirin; Z3A.00 Weeks of gestation of pregnancy not specified; I45.10 Unspecified right bundle-branch block; R94.31 Abnormal electrocardiogram [ECG] [EKG]
CPT/HCPCS: 36415; 71046; 80048; 84484; 85025; 85610; 85730; 93005; 99284

== ENCOUNTER 2020-06-05 08:30 | Outpatient (CLI) | payer OTHER, SELFPAY ==
--- NOTE | ~2020-06-05 | US_ITS ---
EXAMINATION: US OB >= 14 weeks Fetus DATE: 06/05/2020 09:26 INDICATION: Routine care. TECHNIQUE: Real-time ultrasound of the pelvis was performed. COMPARISON: Ultrasound 04/07/2020, 02/06/2020 FINDINGS: There is a single living fetus in breech presentation. The placenta is anterior. heart rate is 142 beats per minute (bpm). The amniotic fluid index is 11.4 cm, which is normal. The following biometric data were obtained: Biparietal diameter (BPD): 7.1 cm; head circumference (HC): 27.5 cm; abdominal circumference (AC): 25 .9 cm; femur length (FL): 5.6 cm. These measurements are concordant. Estimated weight is 1443 g +/- 216 g, which correlates with 48th percentile when 08/18/20 is use d as estimated date of delivery. As single measurements, these parameters are each equal to the following estimated gestational ages: BPD: 28 weeks 3 days. HC: 30 weeks 1 days. AC: 30 weeks 0 days. FL: 29 weeks 3 days. estimated gestational age based solely on measurements from this exam is 29 weeks 4 days +/- 2 weeks 0 days. IMPRESSION: 1. Single living fetus in breech presentation. 2. Estimated weight is 1443 g +/- 216 g, which correlates with 48th percentile when 08/18/20 is used as estimated date of delivery. This date was set by ultrasound on 02/06/2020. Reviewed, dictated and finalized at location A. EPOINT DESIGNER DEVELOPER IMPRESSION: 1. Single living fetus in breech presentation. 2. Estimated weight is 1443 g +/- 216 g, which correlates with 48th perc entile when 08/18/20 is used as estimated date of delivery. This date was set by ultrasound on 02/06/2020.
== END 2020-06-05 08:31 | disposition home or self-care (01) ==
PROVIDERS: Visit Provider Physician Assistant
DX: Z34.92 Encounter for supervision of normal pregnancy, unspecified, second trimester (principal); Z3A.29 29 weeks gestation of pregnancy
CPT/HCPCS: 76805

== ENCOUNTER 2020-06-05 20:06 | Emergency (ER) | payer OTHER, SELFPAY ==
[2020-06-05] VITALS (9 sets, daily range): BP systolic 89–114; BP diastolic 65–79; PULSE 89–119; RESP 14–26; TEMP 36.4; O2SAT 97–100
--- NOTE | 2020-06-05 20:18 | ECG_ITS ---
Measurements Intervals [place] Rate: 108 P: 19 ID: 119 QRS: 24 QRSD: 86 T: -30 QT: 319 QTc: 428 Interpretive Statements SINUS TACHYCARDIA WITH SHORT ID INTERVAL NONSPECIFIC ST & T-WAVE ABNORMALITY- DIFFUSE LEADS BASELINE WANDER- III ABNORMAL ECG Electronically Signed On 06-06-2020 8:03:08 WIDTH STRIPPER by Abdirahman Schreiber D.O.
--- NOTE | 2020-06-05 20:26 | ED.DIZZY ---
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 Patient denies any spinning, nausea or vomiting. Patient reports some frontal headache started few hours later. Patient denies any fever, chills, nausea, vomiting, urinary symptoms, shortness of breath, back pain, chest pain, respiratory symptoms, sore throat, exposure to anybody with COVID-19. Patient lives with her uncle, denies any stress. 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 Currently patient is asymptomatic. Patient reports that the dizziness sometimes gets worse sitting and laying down. Related Data Home Medications Medication Instructions Recorded Confirmed aspirin 81 mg PO DAILY 03/25/20 03/25/20 folic acid 1 mg PO DAILY 03/25/20 ondansetron HCl 4 mg PO PRN PRN 06/05/20 06/05/20 Allergies Allergy/AdvReac Type Severity Reaction Status Date / Time No Known Allergies Allergy Verified 06/05/20 20:10 Review of Systems Review of Systems: Narrative: CONSTITUTIONAL: Denies fever, chills, or sweats. EYES: Denies visual changes, redness, or discharge. ENT: Denies rhinorrhea, congestion, sore throat, or otalgia. CARDIOVASCULAR: Denies chest pain, palpitations, or edema. RESPIRATORY: Denies cough or dyspnea. GASTROINTESTINAL: Denies abdominal pain, nausea, vomiting, or diarrhea. GENITOURINARY: Denies dysuria or hematuria. SKIN: Denies rash or itching. MUSCULOSKELETAL: Denies back pain, joint pain, or myalgia. NEUROLOGIC: Denies , numbness, or weakness. PSYCHIATRIC: Denies anxiety or depression. [facility] Past Medical History Medical History (Updated 06/05/20 @ 21:08 by Norberto Esquivel MD) Anxiety Depression Migraines Surgical History Surgical History No history of previous surgery Social History Social History Smoking status: Never smoker Gender identity (if verbalized by the patient): Female Exam Narrative: Exam Narrative: General appearance: Well-developed, well-nourished Skin: Normal color Head: Normocephalic, nontraumatic Eyes: Clear conjunctiva ENT: Oropharynx normal, ears normal, nose normal Neck: Supple, nontender Chest and respiratory: Airway patent, no respiratory distress, no accessory muscle use Heart: Regular rate/rhythm Abdomen: Soft, nontender, no organomegaly, quiet bowel sounds Vascular: Normal peripheral pulses, normal capillary refill. Musculoskeletal: Normal range of motion, nontender back Neurologic: Alert and oriented ?3, PHYSICIST [employer] is normal as tested, no gross motor deficit Course Course Emergency Course: Improved Vital Signs Vital signs: Vital Signs Temperature 36.4 C L 06/05/20 20:07 Pulse Rate 89 06/05/20 20:07 Respiratory Rate 18 06/05/20 20:07 Blood Pressure 114/76 06/05/20 20:07 Pulse Oximetry 100 06/05/20 20:07 Temperature 36.4 C L 06/05/20 20:07 Pulse Rate 94 06/05/20 20:22 Respiratory Rate 14 06/05/20 20:19 Blood Pressure 89/65 L 06/05/20 20:22 Pulse Oximetry 100 06/05/20 20:19 MDM - Dizziness MDM Narrative Medical decision making narrative: Patient came to the emergency room complaining of dizziness, and a frontal headache. Patient denies any stress. History of anxiety, depression and migraine headache
[2020-06-05 20:46] LABS: Basophils Percent Auto 0.2 % (0.2-1.2); Eosinophils Absolute Auto 0.1 K/mm3 (0-0.3); Eosinophils Percent Auto 0.9 % (0-4.4); Hematocrit 33.9 % (37.0-47.0); Hemoglobin 11.7 g/dL (12.0-15.0); Immature Granulocyte Absolute 0.06 K/mm3 (0.00-0.031); Immature Granulocyte Percent A 0.7 % (0-0.5); Lymphocytes Absolute Auto 2.33 K/mm3 (0.9-3.2); Lymphocytes Percent Auto 26.6 % (18.3-44.2); Mean Corpuscular HGB Conc 34.5 g/dl (32-36); Mean Corpuscular Volume 92.6 fl (80-100); Mean Platelet Volume 10.3 fl (7.4-10.4); Monocytes Absolute Auto 0.6 K/mm3 (0.1-0.6); Neutrophils Absolute Auto 5.7 K/mm3 (1.3-6.7); Neutrophils Percent Auto 64.6 % (45.5-73.1); Platelet Count Result 307 k/mm3 (150-375); Red Blood Count 3.66 M/mm3 (4.2-5.4); Red Cell Distribution Width 12.9 % (11.5-14.5); White Blood Count 8.8 K/mm3 (4.5-10.0)
--- NOTE | 2020-06-05 20:53 | PC.NURSE ---
pt is currently refusing IV access.
[2020-06-05 20:54] LABS: Add Urine Microscopic? YES; Amorphous Sediment Urine Few; Appearance Urine Cloudy (Clear); Bacteria Urine Trace /hpf; Bilirubin Urine Negative (Negative); Blood Urine Negative (Negative); Color Urine Straw (Yellow); Glucose Urine UA Negative (Negative); Ketones Urine Negative (Negative); Leukocyte Esterase Ur Negative LEU/UL (Negative); Nitrate Urine Negative (Negative); Protein Urine Negative (Negative); RBC Urine 0-2 /hpf (0-2); Specific Grav Ur 1.006 (1.001-1.035); Squamous Epithelial Cell Urine Many /hpf (Few); Urobilinogen Urine Negative mg/dL (<2.0); WBC Urine 0-3 /hpf
[2020-06-05 20:59] LABS: Alanine Aminotransferase 7 U/L (4-35); Albumin Level 3.6 g/dL (3.5-5.1); Alkaline Phosphatase 77 U/L (38-126); Anion Gap 7 mmol/L (8-16); Aspartate Amino Transferase 20 U/L (14-36); Bilirubin,Total 0.2 mg/dL (0.2-1.3); Blood Urea Nitrogen 4 mg/dL (7-17); Calcium 9.4 mg/dL (8.4-10.2); Carbon Dioxide 25 mmol/L (22-30); Chloride 105 mmol/L (98-107); Estimated Glomerular Filt Rate > 60; Glucose 91 mg/dL (65-105); Potassium 3.8 mmol/L (3.4-5.0); Sodium 137 mmol/L (137-145)
[2020-06-05 21:34] LABS: Amphetamine Screen Urine Negative (Negative); Barbiturate Screen Urine Negative (Negative); Benzodiazepines Screen Urine Negative (Negative); Cannabinoid Screen Urine Negative (Negative); Cocaine Screen Urine Negative (Negative); Methadone Screen Urine Negative (Negative); Opiate Screen Urine Negative (Negative); Phencyclidine Screen Urine Negative (Negative)
== END 2020-06-05 21:19 | disposition home or self-care (01) ==
PROVIDERS: Emergency Provider Emergency Medicine
DX: O26.893 Other specified pregnancy related conditions, third trimester (principal); R42 Dizziness and giddiness; Z3A.29 29 weeks gestation of pregnancy; Z79.82 Long term (current) use of aspirin; R00.0 Tachycardia, unspecified; R94.31 Abnormal electrocardiogram [ECG] [EKG]
CPT/HCPCS: 36415; 76805; 80053; 80307; 81001; 85025; 93005; 99283

== ENCOUNTER 2020-07-05 10:30 | Outpatient (RCR) | payer OTHER, SELFPAY ==
[2020-05-19 09:29] VITALS: BP 105/56; PULSE 72
[2020-07-05 11:27] VITALS: BP 115/64; PULSE 87
== END 2020-08-12 08:20 | disposition home or self-care (01) ==
LOC: ANHOBOP 10:30
PROVIDERS: Visit Provider Obstetrics & Gynecology
DX: O36.8120 Decreased fetal movements, second trimester, not applicable or unspecified (principal); Z3A.27 27 weeks gestation of pregnancy; O36.8130 Decreased fetal movements, third trimester, not applicable or unspecified; Z3A.33 33 weeks gestation of pregnancy
CPT/HCPCS: 59025

== ENCOUNTER 2020-07-23 14:31 | Outpatient (CLI) | payer OTHER, SELFPAY ==
--- NOTE | ~2020-07-23 | US_ITS ---
EXAMINATION: US OB follow up DATE: 07/23/2020 15:24 INDICATION: Encounter for supervision of normal during third trimester. Assess growth and position. TECHNIQUE: Real-time ultrasound of the pelvis was performed. The interpreting radiologist was not pre sent for the study. COMPARISON: None. FINDINGS: There is a single living fetus in vertex presentation. The placenta is anterior. heart rate is 163 beats per minute (bpm). The amniotic fluid index is 0.2 cm, which is normal (5th%-95%: 7.7-24.9 cm at 36 weeks estimated gestational age). The following biometric data were obtained: BPD: 8.5 cm -> 34 weeks 1 days Head circumference: 31.6 cm -> 35 weeks 3 days Abdominal circumference: 31.9 cm -> 35 weeks 6 days Femur length: 6.6 cm -> 34 weeks 1 days These measurements are concordant. Head circumference to abdominal circumference ratio: 0.93 (normal range 0.93-1.11). Estimated weight: 2607 g (+/-) 391 g. or 5 lbs. 12 oz. (+/-) 14 oz. IMPRESSION: 1. Single living fetus in vertex presentation with heart rate of 163 bpm. 2. Normal amniotic fluid index of 10.2 cm. 3. Estimated weight is 23rd percentile by Hadlock criteria when 08/18/2020 is used as the estima evan date of delivery (KT). Please correlate with clinical information or earlier ultrasounds for mos t accurate KT. Reviewed, dictated and finalized at location A. MOBILE DAMAGE FIELD APPRAISER IMPRESSION: 1. Single living fetus in vertex presentation with heart rate of 163 bpm. 2. Normal amniotic fluid index of 10.2 cm. 3. Estimated weight is 23rd percentile by Hadlock criteria when 08/18/2020 is used as the estimated date of delivery (KT). Please correlate with clinica l information or earlier ultrasounds for most accurate KT.
== END 2020-07-23 14:32 | disposition home or self-care (01) ==
LOC: ANHIMG 14:33
PROVIDERS: Visit Provider Physician Assistant
DX: Z34.83 Encounter for supervision of other normal pregnancy, third trimester (principal)
CPT/HCPCS: 76816

== ENCOUNTER 2020-07-28 20:12 | Observation (INO) | payer OTHER, SELFPAY ==
--- NOTE | 2020-07-28 20:12 | OBADM ---
This patient, Anna Dubois, admitted to the OB room Labor/Delivery/Recovery 105 for observation. Patient/family oriented to hospital policies and general routines including ID bracelet, bed and alarms, visiting hours, pain management, procedures, bathroom and other care routines, personal items, smoking policy, room service/diet, and visiting hours. Patient/Family are encouraged to report perceived risks to care and to ask questions if they do not understand what they are told or what they should do.
[2020-07-28 20:26] VITALS: BP 118/75; PULSE 105
[2020-07-28 20:30] VITALS: BP 116/69; PULSE 91
[2020-07-28 20:45] VITALS: BP 108/67; PULSE 82
[2020-07-28 21:00] VITALS: BP 104/64; PULSE 87
[2020-07-28 21:15] VITALS: TEMP 36.6
[2020-07-28 21:16] VITALS: BP 107/60; PULSE 82
[2020-07-28 21:27] VITALS: BMI 36.8
--- NOTE | 2020-07-30 11:31 | PM.OBTRLD ---
OB - Triage/Final Diagnosis Final Diagnosis (1) False labor: Code(s): O47.9 - False labor, unspecified Status: Acute (2) Vaginal spotting: Code(s): N93.9 - Abnormal uterine and vaginal bleeding, unspecified Status: Acute
== END 2020-07-28 21:40 | disposition home or self-care (01) ==
PROVIDERS: Admitting Provider Obstetrics & Gynecology; Visit Provider Obstetrics & Gynecology
DX: O47.03 False labor before 37 completed weeks of gestation, third trimester (principal); O26.853 Spotting complicating pregnancy, third trimester; Z3A.37 37 weeks gestation of pregnancy
CPT/HCPCS: G0378; G0379

== ENCOUNTER 2020-08-02 16:15 | Outpatient (RCR) | payer OTHER, SELFPAY ==
[2020-08-02 18:19] VITALS: BP 108/61; PULSE 81
== END 2020-08-19 07:58 | disposition home or self-care (01) ==
LOC: ANHOBOP 16:15
PROVIDERS: Visit Provider Obstetrics & Gynecology
DX: O36.8130 Decreased fetal movements, third trimester, not applicable or unspecified (principal); Z3A.37 37 weeks gestation of pregnancy
CPT/HCPCS: 59025

== ENCOUNTER 2020-08-05 04:10 | Observation (INO) | payer OTHER, SELFPAY ==
[2020-08-05 04:25] VITALS: TEMP 36.7
--- NOTE | 2020-08-06 11:09 | PM.OBTRLD ---
OB - Triage/Final Diagnosis Visit Information Reason for evaluation: other (rib pain) Comments/Additional reasons for admission: I have assessed the risk for this patient, Anna Dubois, and determined that she would benefit from observation care. Evaluation Baseline heart rate: 140 Variability: Average (6-10) monitor accelerations: Present monitor decelerations: None Final Diagnosis (1) False labor: Code(s): O47.9 - False labor, unspecified Status: Acute (2) Rib pain: Code(s): R07.81 - Pleurodynia Status: Acute
== END 2020-08-05 05:45 | disposition home or self-care (01) ==
PROVIDERS: Admitting Provider Obstetrics & Gynecology; Visit Provider Obstetrics & Gynecology
DX: O26.893 Other specified pregnancy related conditions, third trimester (principal); R07.81 Pleurodynia; O47.03 False labor before 37 completed weeks of gestation, third trimester; Z3A.38 38 weeks gestation of pregnancy
CPT/HCPCS: G0378; G0379

== ENCOUNTER 2020-08-16 19:21 | Emergency (ER) | payer OTHER, SELFPAY ==
--- NOTE | ~2020-08-16 | XR_ITS ---
EXAMINATION: XR chest 1V portable DATE: 08/16/2020 20:26 INDICATION: Midsternal to left-sided chest pain TECHNIQUE: frontal view of the chest was obtained. COMPARISON: Chest radiograph dated 05/03/2020 FINDINGS: The lungs remain clear with no focal airspace opacities, pulmonary edema, pleural effusion or pneumot horax. The cardiomediastinal silhouette is normal. Visualized bones and soft tissues are unremarkable . IMPRESSION: 1. Normal chest radiograph. Reviewed, dictated and finalized at location A. N[employer] OPERATIONS SPECIALIST IMPRESSION: 1. Normal chest radiograph.
--- NOTE | 2020-08-16 19:23 | ECG_ITS ---
Measurements Intervals [place] Rate: 92 P: 28 KS: 154 QRS: 39 QRSD: 85 T: -2 QT: 353 QTc: 438 Interpretive Statements SINUS RHYTHM NONSPECIFIC T-WAVE ABNORMALITY- ANTEROLAT/INF LEADS BASELINE WANDER- I, III, AVR, AVL, AVF, V6 BORDERLINE ECG Electronically Signed On 08-17-2020 6:57:14 SPECIAL SERVICE REPRESENTATIVE by Abdirahman Schreiber D.O.
[2020-08-16 19:34] VITALS: BP 111/70; PULSE 84; RESP 16; TEMP 36.7; O2SAT 99
[2020-08-16 20:03] VITALS: PULSE 76
[2020-08-16 20:37] LABS: Basophils Percent Auto 0.3 % (0.2-1.2); Eosinophils Absolute Auto 0.1 K/mm3 (0-0.3); Eosinophils Percent Auto 0.6 % (0-4.4); Hematocrit 36.1 % (37.0-47.0); Hemoglobin 12.2 g/dL (12.0-15.0); Immature Granulocyte Absolute 0.04 K/mm3 (0.00-0.031); Immature Granulocyte Percent A 0.5 % (0-0.5); Lymphocytes Absolute Auto 2.38 K/mm3 (0.9-3.2); Lymphocytes Percent Auto 27.4 % (18.3-44.2); Mean Corpuscular HGB Conc 33.8 g/dl (32-36); Mean Corpuscular Hemoglobin 30.5 pg (26-34); Mean Corpuscular Volume 90.3 fl (80-100); Mean Platelet Volume 11.1 fl (7.4-10.4); Monocytes Absolute Auto 0.5 K/mm3 (0.1-0.6); Neutrophils Absolute Auto 5.7 K/mm3 (1.3-6.7); Neutrophils Percent Auto 65.2 % (45.5-73.1); Platelet Count Result 253 k/mm3 (150-375); Red Cell Distribution Width 12.9 % (11.5-14.5); White Blood Count 8.7 K/mm3 (4.5-10.0)
[2020-08-16 20:46] LABS: INR 0.8; Prothrombin Time 11.9 Seconds (11.1-14.7)
[2020-08-16 20:47] LABS: Partial Thromboplastin Time 28.1 SECONDS (22.3-36.8)
[2020-08-16 20:52] LABS: Anion Gap 9 mmol/L (8-16); Blood Urea Nitrogen 6 mg/dL (7-17); Calcium 9.2 mg/dL (8.4-10.2); Carbon Dioxide 23 mmol/L (22-30); Chloride 107 mmol/L (98-107); Estimated Glomerular Filt Rate > 60; Glucose 95 mg/dL (65-105); Potassium 3.7 mmol/L (3.4-5.0); Sodium 139 mmol/L (137-145)
[2020-08-16 21:03] LABS: Troponin I < 0.012 ng/mL (0.000-0.034)
[2020-08-16 22:00] VITALS: BP 109/72; PULSE 75; RESP 16; O2SAT 99
[2020-08-16] MEDS: BELLADONNA ALK/PHENOB ELIX 10 ML, MAG HYDROX/ALUMINUM HYD/SIMETH 30 ML, LIDOCAINE HCL 2... PO (22:13)
--- NOTE | 2020-08-16 22:51 | ED.CHESTPAIN ---
HPI - Chest Pain General Chief Complaint: Chest Pain Stated Complaint: Left chest pain x 2 days Time Seen by Provider: 08/16/20 20:59 History of Present Illness HPI narrative: Patient is a 24-year-old female who presents ER with chest pain ongoing for 2 days. Intermittent and worse with laying down flat. She has a bad taste in her mouth that feels like heartburn. Patient is 39 weeks and 5 days in gestation. She has no difficulty breathing or swallowing. No exertional decline. No lower extremity swelling. She is without hemoptysis. She has not taken any medication other than Tylenol. She reports she continues to feel baby move. She has no leakage of fluid from her vagina or vaginal bleeding. Related Data Home Medications Medication Instructions Recorded Confirmed aspirin 81 mg PO DAILY 03/25/20 03/25/20 folic acid 1 mg PO DAILY 03/25/20 ondansetron HCl 4 mg PO PRN PRN 06/05/20 06/05/20 prenat.vits,girish,rri-[id number] 1 tablet PO DAILY 07/20/20 07/20/20 Allergies Allergy/AdvReac Type Severity Reaction Status Date / Time No Known Allergies Allergy Verified 07/20/20 12:31 Review of Systems Review of Systems: All systems reviewed & are unremarkable except as noted in HPI and below Constitutional: Constitutional: Denies chills, Denies fever(s) and Denies weakness ENT: Denies nasal congestion and Denies sore throat Cardiovascular: Cardiovascular: Reports chest pain, Denies rapid heart rate and Denies radiating jaw, neck or arm pain Respiratory: Respiratory: Denies cough, Denies dyspnea and Denies wheezing Gastrointestinal: Gastrointestinal: Denies abdominal pain, Reports heartburn, Denies diarrhea, Denies nausea and Denies vomiting Genitourinary: Genitourinary: Denies abnormal vaginal bleeding, Reports nocturia and Denies dysuria [facility] Past Medical History Medical History (Updated 08/16/20 @ 22:55 by Cabrera Ely MD) Anxiety Depression Migraines Surgical History Surgical History No history of previous surgery Family History Family History (Updated 07/20/20 @ 12:33 by Rhonda Almanza RN) Mother Hypertension Diabetes mellitus Social History Social History Smoking status: Never smoker Substance use: former Gender identity (if verbalized by the patient): Female Spiritual care concerns: No Exam Narrative: Exam Narrative: GENERAL: Well-appearing, well-nourished, and in no acute distress. HEAD: Normocephalic, atraumatic. ENT: Mucous membranes moist. CHEST: Clear to auscultation. No respiratory distress. HEART: Regular rate and rhythm. Normal peripheral pulses. ABDOMEN: Nontender abdomen with palpable fundus of near the border of the rib cage. movement felt. No tenderness. EXTREMITIES: Normal range of motion. No edema. SKIN: Warm, dry, no rash. NEURO: Alert and oriented x3. PSYCH: Normal mood and affect. Course Course Emergency Course: Symptoms resolved with GI cocktail. Unremarkable lab work. Discharge home. Vital Signs Vital signs: Vital Signs Temperature 98.1 F 08/16/20 19:34 Pulse Rate 84 08/16/20 19:34 Respiratory Rate 16 08/16/20 19:34 Blood Pressure 111/70 08/16/20 19:34 Pulse Oximetry 99 08/16/20 19:34 Temperature 98.1 F 08/16/20 19:34 Pulse Rate 75 08/16/20 22:00 Respiratory Rate 16 08/16/20 22:00 Blood Pressure 109/72 08/16/20 22:00 Pulse Oximetry 99 08/16/20 22:00 MDM - Chest Pain Lab Data Result diagrams: 08/16/20 20:30 08/16/20 20:30 Labs: Lab Results 08/16/20 08/16/20 08/16/20 Range/Units 20:30 20:30 20:30 WBC 8.7 (4.5-10.0) K/mm3 RBC 4.00 L (4.2-5.4) M/mm3 Hgb 12.2 (12.0-15.0) g/dL Hct 36.1 L (37.0-47.0) % MCV 90.3 (80-100) fl MCH 30.5 (26-34) pg MCHC 33.8 (32-36) g/dl RDW 12.9 (11.5-14.5) % Plt Count 253 (150-375) k
[2020-08-16 23:34] VITALS: BP 105/69; PULSE 74; RESP 18; TEMP 36.8; O2SAT 98
== END 2020-08-16 23:36 | disposition home or self-care (01) ==
PROVIDERS: Emergency Medicine; Emergency Provider Emergency Medicine
DX: O99.613 Diseases of the digestive system complicating pregnancy, third trimester (principal); K21.9 Gastro-esophageal reflux disease without esophagitis; Z79.82 Long term (current) use of aspirin; Z3A.39 39 weeks gestation of pregnancy; R94.31 Abnormal electrocardiogram [ECG] [EKG]
CPT/HCPCS: 36415; 71045; 80048; 84484; 85025; 85610; 85730; 93005; 99284; A9270

== ENCOUNTER 2020-08-17 05:23 | Observation (INO) | payer OTHER, SELFPAY ==
--- NOTE | 2020-08-17 06:30 | LDADM ---
This patient, Anna Dubois, was admitted to Labor/Delivery/Recovery 103 on 08/17/20 at 05:23. Plans for labor, pain management and were discussed with patient. Patient/family oriented to hospital policies and general routines including ID bracelet, bed and alarms, visiting hours, pain management, procedures, bathroom and other care routines, personal items, smoking policy, room service/diet and guest tray routines, infant security routines, and visiting hours. Patient/Family are encouraged to report perceived risks to care and to ask questions if they do not understand what they are told or what they should do. See OBIX for further documentation.
--- NOTE | 2020-08-21 08:30 | PM.OBDSVD ---
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 , antepartum: Code(s): O99.280 - Endocrine, nutritional and metabolic diseases complicating , unspecified trimester; E72.12 - Methylenetetrahydrofolate reductase deficiency Status: Acute OB - DS: Summary Hospital Course Time spent discussing smoking cessation with patient: 3 to 10 minutes OB Procedures : Ultrasound OB Procedures Intrapartum: Spontaneous Vag Delivery OB Procedures: : None Peripartum Data Delivery Method: Natural Vaginal Laceration Description: Perineal - 1st Degree complications: none 1: Gender: Male Disposition of : home Status at Discharge Functional status at discharge: independent ambulation Overall status at discharge: patient is back to baseline Time Spent with Patient Time attestation: Total time spent providing and/or coordinating discharge services: Time spent: Less than 30 minutes Exam Const: General: cooperative, healthy appearing, comfortable, no acute distress, well developed, alert, awake and Physically active Nutritional Appearance: average body habitus Orientation/consciousness: patient oriented x3 Limitations: no limitations HENMT: Head: normal to inspection Eyes: General: appearance normal, both eyes and all related structures Neck: Neck: normal visual inspection Chest: Chest palpation & inspection: normal inspection of the chest Resp: Effort & Inspection: normal respiratory effort Cardio: Rate: regular rate Rhythm: regular rhythm GI: Inspection: normal to inspection : External Female Exam: normal external appearance Back/Spine/Pelvis: Back: no CVA tenderness Skin: General skin exam: normal color Neuro: General: patient oriented x3, gait normal, tone normal and moves all extremities Extrem: General: normal to inspection and no calf tenderness Psych: Appearance: grossly normal Mental Status: mental status grossly normal Affect: normal affect Attitude: cooperative Thought process: Normal thought process present Thought content: Yes Normal thought content present Insight: Good insight present (Psych) Judgement: Good judgement present (Psych) Discharge Plan Discharge Attending physician on discharge: Blaze Amos Discharging Clinician: Blaze Amos Anticipated Discharge Date/Time: 08/20/20 08:00 Patient Disposition: Home, Self-Care Activity: as tolerated Diet: as tolerated and regular Discharge Instructions: OB ANTEPARTUM DISCHARGE INSTRUCTIONS This information is given to help you properly care for yourself at home after your discharge from the hospital. Follow these instructions until your doctor tells you otherwise. DIET: Eat Three Well Balanced Meals per Day Drink at Least Eight 8-Ounce Glasses of Caffeine-Free Beverages Daily Advance As Tolerated Additional Diet Instructions: ACTIVITY: As Tolerated Additional Activity Instructions: RETURN TO LABOR AND DELIVERY IF YOU HAVE: Any Change In Baby's Normal Movement Pattern Any Leakage of Fluid Contractions 3-5 Minutes Apart with Increasing Intensity Vaginal Bleeding Additional Reasons to Return to Labor and Delivery: Contractions
--- NOTE | 2020-08-27 11:08 | P.PNOB_ITS ---
OB - Triage/Final Diagnosis Visit Information Date of evaluation: 08/16/20 Reason for evaluation: other (GERD) Comments/Additional reasons for admission: I have assessed the risk for this patient, Anna Dubois, and determined that she would benefit from observa tion care. Evaluation Baseline heart rate: 144 Variability: Moderate (11-25) monitor accelerations: Present monitor decelerations: None Final Diagnosis (1) GERD (gastroesophageal reflux disease): Code(s): K21.9 - Gastro-esophageal reflux disease without esophagitis Status: Inactive
== END 2020-08-17 08:10 | disposition home or self-care (01) ==
PROVIDERS: Admitting Provider Obstetrics & Gynecology; Visit Provider Obstetrics & Gynecology
DX: O99.613 Diseases of the digestive system complicating pregnancy, third trimester (principal); K21.9 Gastro-esophageal reflux disease without esophagitis; Z3A.39 39 weeks gestation of pregnancy
CPT/HCPCS: G0378; G0379

== ENCOUNTER 2020-08-18 10:52 | Inpatient (IN) | payer OTHER, SELFPAY ==
[2020-08-18] VITALS (120 sets, daily range): BP systolic 40–204; BP diastolic 28–181; PULSE 55–135; TEMP 36.6–37.6; O2SAT 91–100; BMI 39.1
--- NOTE | 2020-08-18 12:45 | LDADM ---
This patient, Anna Dubois, was admitted to Labor/Delivery/Recovery 105 on 08/18/20 at 10:52. Plans for labor, pain management and were discussed with patient. Patient/family oriented to hospital policies and general routines including ID bracelet, bed and alarms, visiting hours, pain management, procedures, bathroom and other care routines, personal items, smoking policy, room service/diet and guest tray routines, infant security routines, and visiting hours. Patient/Family are encouraged to report perceived risks to care and to ask questions if they do not understand what they are told or what they should do. See OBIX for further documentation.
[2020-08-18 13:03] LABS: Basophils Percent Auto 0.2 % (0.2-1.2); Eosinophils Percent Auto 0.5 % (0-4.4); Hematocrit 35.9 % (37.0-47.0); Hemoglobin 12.1 g/dL (12.0-15.0); Immature Granulocyte Absolute 0.04 K/mm3 (0.00-0.031); Immature Granulocyte Percent A 0.5 % (0-0.5); Lymphocytes Percent Auto 24.8 % (18.3-44.2); Mean Corpuscular HGB Conc 33.7 g/dl (32-36); Mean Corpuscular Hemoglobin 30.4 pg (26-34); Mean Corpuscular Volume 90.2 fl (80-100); Mean Platelet Volume 11.6 fl (7.4-10.4); Monocytes Absolute Auto 0.6 K/mm3 (0.1-0.6); Monocytes Percent Auto 7.4 % (2.6-8.5); Neutrophils Absolute Auto 5.4 K/mm3 (1.3-6.7); Neutrophils Percent Auto 66.6 % (45.5-73.1); Platelet Count Result 251 k/mm3 (150-375); Red Blood Count 3.98 M/mm3 (4.2-5.4); Red Cell Distribution Width 12.9 % (11.5-14.5); White Blood Count 8.1 K/mm3 (4.5-10.0)
[2020-08-18] MEDS: LACTATED RINGERS 1,000 ML 125 ML IV CONT ×2 (13:03→18:26)
[2020-08-18] MEDS: OXYTOCIN 30 UNITS/NS 500 ML 30 UNITS/500 ML BAG 6 UNITS IV CONT (13:04)
--- NOTE | 2020-08-18 15:41 | PM.IMHP ---
H&P: HPI History of Present Illness Date/Time: 08/18/20 15:41 Chief Complaint: spontaneous onset of labor in term Narrative: Anna Dubois is a 24 year old female ZA at 40w gestation. c/b HSV, MTHFR, DEEJAY. spontaneous onset of labor kyrie every 5 minutes Review of Systems Review of Systems: All systems reviewed & are unremarkable except as noted in HPI and below Constitutional: Constitutional: Reports no additional constitutional complaints Eyes: Eyes: Reports no additional eye complaints ENT: Reports system reviewed and no additional complaints, except as documented Cardiovascular: Cardiovascular: Reports no additional cardiovascular complaints Respiratory: Respiratory: Reports no additional respiratory complaints Gastrointestinal: Gastrointestinal: Reports no additional gastrointestinal complaints Genitourinary: Genitourinary: Reports no additional female genitourinary complaints Musculoskeletal: Musculoskeletal: Reports no additional musculoskeletal complaints Integumentary/Breasts: Skin/Breast: Reports system reviewed and no additional complaints, except as docu Neurologic: Reports system reviewed and no additional complaints, except as documented Psychiatric: Psychiatric: Reports no additional psychiatric complaints Endocrine: Endocrine: Reports no additional endocrine complaints Hematologic/Lymphatic: Hematologic/Lymphatic: Reports no additional hematologic/lymphatic complaints Allergic/Immunologic: Allergic/Immunologic: Reports no additional allergic/immunologic complaints PMFSH Past Medical History Medical History (Updated 08/18/20 @ 15:50 by Blaze Amos MD) Anxiety Depression GERD (gastroesophageal reflux disease) HSV (herpes simplex virus) infection Methylenetetrahydrofolate reductase (MTHFR) deficiency affecting , antepartum Migraines Surgical History Surgical History No history of previous surgery Family History Family History Mother Hypertension Diabetes mellitus Social History Social History (Updated 08/18/20 @ 15:46 by Blaze Amos MD) Smoking status: Never smoker Alcohol intake: never Substance use: former Substance use type: does not use Living arrangements: with family Occupation/Education: unemployed Gender identity (if verbalized by the patient): Female Sexual Orientation (if Verbalized by the Patient): Straight or Heterosexual Spiritual care concerns: No Agree to blood products: Yes Meds Home Medications and Allergies Home Medications Medication Instructions Recorded Confirmed Type aspirin 81 mg PO DAILY 03/25/20 08/18/20 History folic acid 1 mg PO DAILY 03/25/20 08/18/20 History ondansetron HCl 4 mg PO PRN PRN 06/05/20 08/18/20 History prenat.vits,girish,[id number] 1 tablet PO DAILY 07/20/20 07/20/20 History acyclovir 800 mg PO DAILY 08/18/20 08/18/20 History buspirone 10 mg PO DAILY 08/18/20 08/18/20 History famotidine 20 mg PO DAILY 08/18/20 08/18/20 History Allergies Allergy/AdvReac Type Severity Reaction Status Date / Time No Known Allergies Allergy Verified 07/20/20 12:31 Vital Signs Vital Signs - 24 hr 08/18/20 11:27 08/18/20 11:30 08/18/20 11:58 Temperature 98 F Pulse Rate 94 85 Blood Pressure 119/71 121/68 Pulse Oximetry 100 08/18/20 12:00 08/18/20 12:14 08/18/20 13:03 Temperature 99 F Pulse Rate 86 87 82 Blood Pressure 116/70 126/68 118/78 Pulse Oximetry 08/18/20 13:31 08/18/20 14:00 08/18/20 14:02 Temperature 99.2 F Pulse Rate 103 H 77 Blood Pressure 106/47 L 115/68 Pulse Oximetry 08/18/20 14:30 08/18/20 15:00 08/18/20 15:30 Temperature Pulse Rate 75 74 78 Blood Pressure 110/77 116/74 109/69 Pulse Oximetry Exam Const: General: cooperative, healthy appearing, comfortable, no acute distress, w
--- NOTE | 2020-08-18 15:51 | WPDHPUPDATE1 ---
History and Physical Update Update Date/Time: 08/18/20 15:51 History and Physical has been reviewed, including an updated exam of the patient. There are NO changes in the patient's condition. Risks, benefits, and alternatives have been discussed and questions answered. Patient agrees to proceed with procedure. Anna Dubois is a 24 year old female ZA at 40w gestation. c/b HSV, MTHFR, DEEJAY. spontaneous onset of labor kyrie every 5 minutes
--- NOTE | 2020-08-18 15:51 | WPDOBADMIT ---
Obstetrics - Admit Note Admission Note: record reviewed. No pertinent additions to the history and/or any subsequent changes in the physical findings that are not consistent with the expected course of the were found. Additions to the history and/or subsequent changes in the physical findings follow. None. Anna Dubois is a 24 year old female ZA at 40w gestation. c/b HSV, MTHFR, DEEJAY. spontaneous onset of labor kyrie every 5 minutes
[2020-08-18 16:49] LABS: Amphetamine Screen Urine Negative (Negative); Barbiturate Screen Urine Positive (Negative); Benzodiazepines Screen Urine Negative (Negative); Cannabinoid Screen Urine Positive (Negative); Cocaine Screen Urine Negative (Negative); Methadone Screen Urine Negative (Negative); Opiate Screen Urine Negative (Negative); Phencyclidine Screen Urine Negative (Negative)
--- NOTE | 2020-08-18 16:52 | WPDANESEPP ---
Anes - Eval Pre Procedure Procedure: Labor epidural Date/Time: 08/18/20 16:52 Surgeon: Dandre Preop Diagnosis: Abd pain with contractions Pre Op Diagnosis: Induction of Labor Patient Data Age: 24 Gender: F Height: 4 ft 9 in Weight: 82 kg Last Vital Signs Temp 99.6 F 08/18/20 16:00 Pulse 83 08/18/20 16:30 BP 117/68 08/18/20 16:30 Pulse Ox 100 08/18/20 11:27 Allergies Allergy/AdvReac Type Severity Reaction Status Date / Time No Known Allergies Allergy Verified 07/20/20 12:31 Home Medications Medication Instructions Recorded Confirmed Type aspirin 81 mg PO DAILY 03/25/20 08/18/20 History folic acid 1 mg PO DAILY 03/25/20 08/18/20 History ondansetron HCl 4 mg PO PRN PRN 06/05/20 08/18/20 History prenat.vits,girish,[id number] 1 tablet PO DAILY 07/20/20 07/20/20 History acyclovir 800 mg PO DAILY 08/18/20 08/18/20 History buspirone 10 mg PO DAILY 08/18/20 08/18/20 History famotidine 20 mg PO DAILY 08/18/20 08/18/20 History Laboratory Tests 08/18/20 08/18/20 08/18/20 12:53 12:53 12:53 WBC 8.1 K/mm3 K/mm3 (4.5-10.0) RBC 3.98 M/mm3 L M/mm3 (4.2-5.4) Hgb 12.1 g/dL g/dL (12.0-15.0) Hct 35.9 % L % (37.0-47.0) MCV 90.2 fl fl (80-100) MCH 30.4 pg pg (26-34) MCHC 33.7 g/dl g/dl (32-36) RDW 12.9 % % (11.5-14.5) Plt Count 251 k/mm3 k/mm3 (150-375) MPV 11.6 fl H fl (7.4-10.4) Immature Gran % (Auto) 0.5 % % (0-0.5) Neut % (Auto) 66.6 % % (45.5-73.1) Lymph % (Auto) 24.8 % % (18.3-44.2) [place] % (Auto) 7.4 % % (2.6-8.5) Eos % (Auto) 0.5 % % (0-4.4) Baso % (Auto) 0.2 % % (0.2-1.2) Lymph # (Auto) 2.00 K/mm3 K/mm3 (0.9-3.2) [place] # (Auto) 0.6 K/mm3 K/mm3 (0.1-0.6) Eos # (Auto) 0.0 K/mm3 K/mm3 (0-0.3) Baso # (Auto) 0.0 K/mm3 K/mm3 (0.0-0.1) Abs Immat Gran (auto) 0.04 K/mm3 H K/mm3 (0.00-0.031) Absolute Neuts (auto) 5.4 K/mm3 K/mm3 (1.3-6.7) Absolute Nucleated RBC 0.0 K/mm3 K/mm3 (0.0-0.012) Nucleated RBC % 0.0 % % (0.0-0.2) Urine Opiates Screen Urine Methadone Screen Ur Barbiturates Screen Ur Phencyclidine Scrn Ur Amphetamine Screen U Benzodiazepines Scrn Urine Cocaine Screen U Cannabinoids Screen RPR Pending Blood Type B Positive Antibody Screen Negative 08/18/20 16:05 WBC RBC Hgb Hct MCV MCH MCHC RDW Plt Count MPV Immature Gran % (Auto) Neut % (Auto) Lymph % (Auto) [place] % (Auto) Eos % (Auto) Baso % (Auto) Lymph # (Auto) [place] # (Auto) Eos # (Auto) Baso # (Auto) Abs Immat Gran (auto) Absolute Neuts (auto) Absolute Nucleated RBC Nucleated RBC % Urine Opiates Screen Negative (Negative) Urine Methadone Screen Negative (Negative) Ur Barbiturates Screen Positive A (Negative) Ur Phencyclidine Scrn Negative (Negative) Ur Amphetamine Screen Negative (Negative) U Benzodiazepines Scrn Negative (Negative) Urine Cocaine Screen Negative (Negative) U Cannabinoids Screen Positive A (Negative) RPR Blood Type Antibody Screen Patient hx anesthesia problems: none Family hx anesthesia problems: none PMFSH Past Medical History Medical History (Updated 08/18/20 @ 16:54 by Scott Shepherd CRNA) Anxiety Depression GERD (gastroesophageal reflux disease) Gestational diabetes mellitus (GDM) affecting first HSV (herpes simplex virus) infection Methylenetetrahydrofolate reductase (MTHFR) deficiency affecting , antepartum Migraines Surgical History Surgic
--- NOTE | 2020-08-18 16:57 | PM.OBPNLAB ---
Pain Control Date/time seen: 08/18/20 16:57 Pain control: tolerating well Comments: pit 14 Pelvic Exam Dilation (cm): 2 Effacement (%): 80 station: -2 Amniotic membrane status: Ruptured Comments: AROM Meconium stained fluid IUPC placed Contractions Monitor mode: External Contraction frequency: 2 Contraction duration: 60 Contraction pattern: Regular Contraction phase: Contraction Contraction intensity: Strong/Firm Status status: Category l Assessment and Plan Pitocin rate (mU/min): 14 Assessment: other (latent phase) Plan: continuous present management, begin patient augmentation and other (epidural)
[2020-08-19] VITALS (80 sets, daily range): BP systolic 89–137; BP diastolic 52–75; PULSE 62–137; RESP 16–20; TEMP 36.7–38.7; O2SAT 97–100
[2020-08-19] MEDS: SODIUM CHLORIDE 0.9% IV 1,000 ML 150 ML I-UTERINE (01:19)
[2020-08-19] MEDS: LACTATED RINGERS 1,000 ML 125 ML IV CONT (01:19)
[2020-08-19] MEDS: ONDANSETRON INJ 4 MG/2 ML VIAL IV PUSH (02:49)
--- NOTE | 2020-08-19 04:24 | PM.OBPRVD ---
OB - Delivery Note Procedure Delivery date: 08/19/20 Procedure: Normal spontaneous vertex vaginal delivery a viable male infant and placenta Second-degree midline episiotomy and repair Intrapartal events: Other (Meconium-stained amniotic fluid) Induction method: none Delivery augmentation: rupture of membranes and pitocin Delivery monitor: external FHT and internal uterine Route of delivery: Episiotomy description: Midline Laceration Description: Perineal - 2nd Degree Delivery repair: vicryl (2 0) Specimen: Yes (Placenta, cord blood, cord blood gases) Quantitative Blood Loss (ml): 150 Anesthesia type: Epidural Disposition: floor Complications: None Narrative: Patient pushed in 2nd stage of labor for approximately 1 to 1-1/2 hours patient was in the dorsal lithotomy position prepped in the usual sterile fashion a normal spontaneous vertex vaginal delivery of a viable male over a second-degree midline episiotomy was then performed nuchal cord x2 was reduced on the peritoneum the infant's anterior shoulder was delivered without difficulty and the rest of the infant was delivered and placed onto the maternal abdomen where the cord was clamped and cut nose and throat were bulb suction there spontaneous respirations and cry infant taken care of by the nursery nurse in attendance Apgars 8 9 weight 6 lb 9 oz 18 and 1/2 inches long. Placenta delivered intact three-vessel cord uterus contracted well with Pitocin given intravenously. Second-degree midline episiotomy was then repaired and a running fashion with 0 Vicryl suture with normal proximally [place] of the tissues cervix and rectum were checked there was no sponges left in the vagina no fistula sphincter was intact mom and baby in delivery room 105 stable condition Baby Date of : 08/19/20 Time of : 04:04 Weeks of gestation at delivery: 40 gender: Male Weight (pounds): 6 Weight (ounces): 9 presentation: vertex position: Left Occiput Anterior Placenta delivery description: Spontaneous and Normal Configuration cord vessel description: 3 Vessels, Nuchal Cord and Around Body x2 score one minute: 8 score five minutes: 9 Narrative: Normal spontaneous respirations and cry no gross abnormalities on initial examination taken to the nursery in stable condition normal transition
[2020-08-19] MEDS: OXYTOCIN 30 UNITS/NS 500 ML 30 UNITS/500 ML BAG 125 UNITS IV CONT (04:54)
[2020-08-19] MEDS: IBUPROFEN 600 MG TABLET PO ×2 (04:55→16:34)
[2020-08-19 07:26] LABS: Rapid Plasma Reagin Non-Reactive (NonReactive)
[2020-08-19] MEDS: MULTIVIT/MIN/PREN/FOL AC/IRON TABLET 1 TAB PO (16:33)
[2020-08-19] MEDS: ASPIRIN 81 MG ENTERIC TABLET PO (16:34)
[2020-08-19] MEDS: FOLIC ACID 1 MG TABLET PO (16:34)
[2020-08-19] MEDS: DOCUSATE SODIUM 100 MG CAPSULE PO (16:34)
[2020-08-19] MEDS: busPIRone HCL 10 MG TABLET PO (16:34)
[2020-08-19] MEDS: FAMOTIDINE 20 MG TABLET PO (16:34)
[2020-08-19] MEDS: ACYCLOVIR 400 MG TABLET 800 MG PO (16:35)
[2020-08-19 20:05] LABS: Amphetamine Screen Urine Negative (Negative); Barbiturate Screen Urine Positive (Negative); Benzodiazepines Screen Urine Negative (Negative); Cannabinoid Screen Urine Positive (Negative); Cocaine Screen Urine Negative (Negative); Methadone Screen Urine Negative (Negative); Opiate Screen Urine Negative (Negative); Phencyclidine Screen Urine Negative (Negative)
[2020-08-19] MEDS: ACETAMINOPHEN 325 MG TABLET 650 MG PO (21:10)
[2020-08-20] MEDS: IBUPROFEN 600 MG TABLET PO ×2 (03:25→09:32)
[2020-08-20 05:20] LABS: Hemoglobin 9.6 g/dL (12.0-15.0)
[2020-08-20 08:20] VITALS: BP 111/66; PULSE 69; RESP 18; TEMP 36.8; O2SAT 100
--- NOTE | 2020-08-20 09:06 | PM.OBPNVD ---
OB - PN: Subj Subjective Date/time seen: 08/20/20 09:06 Patient comments: no complaints, pain well controlled, tolerating diet and flatus present [place] baby status: doing well [place] feeding status: exclusively breast feeding OB - PN: Obj Data Labs CBC & Chem 7: 08/20/20 03:28 Labs: Laboratory Results - last 24 hr 08/19/20 08/20/20 19:42 03:28 Hgb 9.6 L Hct 29.0 L Urine Opiates Screen Negative Urine Methadone Screen Negative Ur Barbiturates Screen Positive A Ur Phencyclidine Scrn Negative Ur Amphetamine Screen Negative U Benzodiazepines Scrn Negative Urine Cocaine Screen Negative U Cannabinoids Screen Positive A OB - PN A/P Assessment and Plan (1) Term delivered: Code(s): O80 - Encounter for full-term uncomplicated delivery Status: Acute Plan day: 1 Plan: routine care, discharge home and follow up 6 weeks Time Spent With Patient Time: Total time spent is greater than 50% in coordination of care (as documented) at patient's floor/unit and/or counseling patient: Time with patient: less than 15 minutes Review of Systems Review of Systems: All systems reviewed & are unremarkable except as noted in HPI and below Exam Const: General: cooperative, healthy appearing, comfortable, no acute distress, well developed, alert, awake and Physically active Nutritional Appearance: average body habitus Orientation/consciousness: patient oriented x3 Limitations: no limitations HENMT: Head: normal to inspection Eyes: General: appearance normal, both eyes and all related structures Neck: Neck: normal visual inspection Chest: Chest palpation & inspection: normal inspection of the chest Resp: Effort & Inspection: normal respiratory effort Cardio: Rate: regular rate Rhythm: regular rhythm GI: Inspection: normal to inspection : External Female Exam: normal external appearance Back/Spine/Pelvis: Back: no CVA tenderness Skin: General skin exam: normal color Neuro: General: patient oriented x3, gait normal, tone normal and moves all extremities Extrem: General: normal to inspection and no calf tenderness Psych: Appearance: grossly normal Mental Status: mental status grossly normal Speech and movement: Normal speech and movement present Affect: normal affect Attitude: cooperative Thought process: Normal thought process present Thought content: Yes Normal thought content present Insight: Good insight present (Psych) Judgement: Good judgement present (Psych)
[2020-08-20] MEDS: POLYSACCHARIDE IRON COMPLEX 150 MG CAPSULE PO (09:29)
[2020-08-20] MEDS: ACYCLOVIR 400 MG TABLET 800 MG PO (09:30)
[2020-08-20] MEDS: ASPIRIN 81 MG ENTERIC TABLET PO (09:30)
[2020-08-20] MEDS: busPIRone HCL 10 MG TABLET PO (09:30)
[2020-08-20] MEDS: FOLIC ACID 1 MG TABLET PO (09:31)
[2020-08-20] MEDS: FAMOTIDINE 20 MG TABLET PO (09:31)
[2020-08-20] MEDS: DOCUSATE SODIUM 100 MG CAPSULE PO (09:32)
--- NOTE | 2020-08-20 10:30 | WPDANLDPN2 ---
Anes-Prog Note L&D Date/Time: 08/20/20 10:30 Comfortable throughout: labor Neuraxial method: epidural Epidural/Spinal procedure site: clean & non-tender Neuro status: Neuro function grossly intact. Cardiovascular status: normal Respiratory status: normal Airway patency: baseline Mental status: baseline Post-Op hydration status: normal Vital Signs: Last Vital Signs Temp 36.8 C 08/20/20 08:20 Pulse 69 08/20/20 08:20 Resp 18 08/20/20 08:20 BP 111/66 08/20/20 08:20 Pulse Ox 100 08/20/20 08:20 Pain score (VAS): 1 Post-procedural complaints: none Patient feedback: Patient satisfied with anesthetic care.
--- NOTE | 2020-08-20 12:34 | PCCCNOTE ---
Received referral due to positive urine drug screen for THS and Barbiturates. Spoke with pt.'s nurse and met with pt. They both report that it is believed that the positive barbiturate is from medication used to treat her migraines. Pt. has admitted to using marijuana. Pt. lives with father of baby. She reports that she has supportive family. Plan is to return home today. She reports having all needed items for baby, but did request additional formula to get by until she is able to have a wic appointment. Pt's nurse, Whit, will provide extra formula. Pt. denies need for assistance in contacting/accessing [facility]. Pt. reports having a bassinet and crib available for baby. Pt. did request to be contacted by [employer] regarding infant being added to [place] for health coverage. Online report made to [facility] due to positive urine drug screen for hemalathajana. No report taken, but info is documented with the state. Intake ID with [facility] is [id number].
--- NOTE | 2020-08-20 12:58 | PC.NURSE ---
Patient viewed the discharge video Mother & Baby Care, The First Two Weeks . Patient was given the opportunity and encouraged to ask questions. Patient verbalized understanding of information shared and has been given the mother/baby guide for home reference.
[2020-08-21 08:36] VITALS: BP 113/70; PULSE 76; RESP 16; TEMP 36.8; O2SAT 99
--- NOTE | 2020-09-05 07:52 | PM.OBTRLD ---
OB - Triage/Final Diagnosis Visit Information Comments/Additional reasons for admission: I have assessed the risk for this patient, Anna Dubois, and determined that she would benefit from observation care. Evaluation Laboratory results: Laboratory Tests 08/18/20 08/18/20 08/18/20 12:53 12:53 12:53 WBC 8.1 RBC 3.98 L Hgb 12.1 Hct 35.9 L MCV 90.2 MCH 30.4 MCHC 33.7 RDW 12.9 Plt Count 251 MPV 11.6 H Immature Gran % (Auto) 0.5 Neut % (Auto) 66.6 Lymph % (Auto) 24.8 [place] % (Auto) 7.4 Eos % (Auto) 0.5 Baso % (Auto) 0.2 Lymph # (Auto) 2.00 [place] # (Auto) 0.6 Eos # (Auto) 0.0 Baso # (Auto) 0.0 Abs Immat Gran (auto) 0.04 H Absolute Neuts (auto) 5.4 Absolute Nucleated RBC 0.0 Nucleated RBC % 0.0 Urine Opiates Screen Urine Methadone Screen Ur Barbiturates Screen Ur Phencyclidine Scrn Ur Amphetamine Screen U Benzodiazepines Scrn Urine Cocaine Screen U Cannabinoids Screen RPR Non-reactive Blood Type B Positive Antibody Screen Negative 08/18/20 08/19/20 08/20/20 16:05 19:42 03:28 WBC RBC Hgb 9.6 L Hct 29.0 L MCV MCH MCHC RDW Plt Count MPV Immature Gran % (Auto) Neut % (Auto) Lymph % (Auto) [place] % (Auto) Eos % (Auto) Baso % (Auto) Lymph # (Auto) [place] # (Auto) Eos # (Auto) Baso # (Auto) Abs Immat Gran (auto) Absolute Neuts (auto) Absolute Nucleated RBC Nucleated RBC % Urine Opiates Screen Negative Negative Urine Methadone Screen Negative Negative Ur Barbiturates Screen Positive A Positive A Ur Phencyclidine Scrn Negative Negative Ur Amphetamine Screen Negative Negative U Benzodiazepines Scrn Negative Negative Urine Cocaine Screen Negative Negative U Cannabinoids Screen Positive A Positive A RPR Blood Type Antibody Screen Final Diagnosis (1) False labor: Code(s): O47.9 - False labor, unspecified Status: Acute (2) Vaginal spotting: Code(s): N93.9 - Abnormal uterine and vaginal bleeding, unspecified Status: Acute
--- NOTE | 2020-09-05 07:53 | PM.OBDSVD ---
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 , antepartum: Code(s): O99.280 - Endocrine, nutritional and metabolic diseases complicating , unspecified trimester; E72.12 - Methylenetetrahydrofolate reductase deficiency Status: Acute OB - DS: Summary OB Procedures : Ultrasound OB Procedures Intrapartum: Spontaneous Vag Delivery OB Procedures: : None Time Spent with Patient Time attestation: Total time spent providing and/or coordinating discharge services: DS: Data Data Completed and Pending Completed studies during hospitalization: Pending at discharge 08/19/20 05:11 Surgical [PTH] Routine Discharge Plan Discharge Attending physician on discharge: Blaze Amos Discharging Clinician: Blaze Amos Anticipated Discharge Date/Time: 08/20/20 09:03 Patient Disposition: Home, Self-Care Activity: may shower, no straining, no driving and may drive after 2 weeks Diet: as tolerated and regular Wound Care Instructions: follow printed instructions Discharge Instructions: Education: Mom and Baby Guide Given to: Mother Follow-Up: Call your delivering provider's office for an appointment to be seen in: 3 weeks Mom and baby should come to the [facility] for the follow-up appointment. Appointment Date/Time: August 21, 2020 at 9:00 am What to expect at your follow-up visit: Physical Assessment Call [phone] if you are unable to keep your appointment time. BREAST CARE: * Wear a snug supportive bra. * For engorgement discomfort: Bottle Feeding: * May apply ice packs EPISIOTOMY/PERINEAL CARE: * Until bleeding stops, use your justina bottle after urinating * Change your pad frequently throughout the day * You may take sitz baths several times a day (fill your bathtub with warm water and soak for 20 minutes.) Do NOT bathe in the water * No tub baths until seen by your physician - You may shower ACTIVITY: * Rest as much as possible. * Do not exercise or lift anything heavier than your baby (such as laundry or other children.) * Avoid stairs or driving as much as possible. * Do not put anything into the vagina. No douching, tampons, or sexual activity until seen by physician. NOTIFY PHYSICIAN IF YOU HAVE ANY QUESTIONS OR IF ANY OF THE FOLLOWING SYMPTOMS OCCUR: * If your episiotomy becomes red, swollen, or more painful than what you have experienced in the hospital. * If your vaginal bleeding becomes foul smelling. * If your vaginal bleeding becomes more heavy than a period or if your bleeding changes from pink to bright red. However, you may pass an occasional walnut-sized clot once or twice for the first week . * If you experience a sharp, shooting pain in you calves. * If you discover a hard, reddened area on your breast or if you experience flu-like symptoms. DIET: * Eat regular, well-balanced meals. * Drink plenty of fluids daily. If , drink to thirst.Routine Stand Alone Forms: General Discharge Information Follow-up/Referrals: Blaze Amos MD [Physician] - 3 Weeks Discharge Medications: New ibuprofen 600 mg Tablet 600 mg PO Q6H Qty: 90 RF: 2 hydrocodone-acetaminophen 5-325 mg Tablet 1 tablet PO Q6H
== END 2020-08-20 14:29 | disposition home or self-care (01) | DRG 560 ==
LOC: ANHLDR 08-19 04:37 → ANHOB2 08-19 07:02
PROVIDERS: Admitting Provider Obstetrics & Gynecology; Visit Provider Obstetrics & Gynecology
DX: O76 Abnormality in fetal heart rate and rhythm complicating labor and delivery (principal); O99.284 Endocrine, nutritional and metabolic diseases complicating childbirth; O70.1 Second degree perineal laceration during delivery; E72.12 Methylenetetrahydrofolate reductase deficiency; O99.344 Other mental disorders complicating childbirth; F41.8 Other specified anxiety disorders; O98.52 Other viral diseases complicating childbirth; B00.9 Herpesviral infection, unspecified; O77.0 Labor and delivery complicated by meconium in amniotic fluid; O69.81X0 Labor and delivery complicated by cord around neck, without compression, not applicable or unspecified; O41.1230 Chorioamnionitis, third trimester, not applicable or unspecified; Z3A.40 40 weeks gestation of pregnancy; Z37.0 Single live birth
CPT/HCPCS: 36415; 80307; 85014; 85018; 85025; 86592; 86850; 86900; 86901; 88307; A9270; J2405; J2590; J2795; J7030; J7120

== ENCOUNTER 2020-12-03 21:56 | Emergency (ER) | payer OTHER, SELFPAY ==
--- NOTE | ~2020-12-03 | XR_ITS ---
EXAMINATION: XR chest 1V 12/03/2020 22:22 INDICATION: Mid chest pain PROCEDURE: 2 view chest COMPARISON: Comparison to multiple prior studies sequentially, with oldest reviewed study dated 02/21. FINDINGS: The lungs are clear. The cardiomediastinal silhouette is within normal limits. There are no pleural effusions. There is no pneumothorax suspected. IMPRESSION: 1: NO ACUTE CARDIOPULMONARY DISEASE. Reviewed, dictated and finalized at location A.
--- NOTE | 2020-12-03 22:00 | ECG_ITS ---
Measurements Intervals [place] Rate: 81 P: 22 ID: 160 QRS: 33 QRSD: 87 T: -6 QT: 365 QTc: 424 Interpretive Statements SINUS RHYTHM BORDERLINE ST-T WAVE ABNORMALITY- ANTEROLAT/INF LEADS BORDERLINE ECG Electronically Signed On 12-04-2020 7:40:55 CDT by Abdirahman Schreiber D.O.
[2020-12-03 22:07] VITALS: BP 125/76; PULSE 97; RESP 18; TEMP 36.5; O2SAT 100
[2020-12-03 23:48] VITALS: BP 117/84; PULSE 67; RESP 18; O2SAT 100
[2020-12-04 00:37] LABS: D Dimer 0.27 ug/mL (<0.48)
--- NOTE | 2020-12-04 00:52 | ED.GENADULT ---
HPI - General Adult General Chief complaint: Unspecified Stated complaint: Bilat rib/chest pain-worse with deep Isaias Time Seen by Provider: 12/03/20 23:22 History of Present Illness HPI narrative: Patient is a 25-year-old female who presents ER with chest tightness. Located over her chest wall laterally bilaterally. No difficulty breathing or swallowing. No productive cough. No fevers or chills or sweats. Does have some increased discomfort with deep breath but only on occasion. She took some Tylenol which decreased the pain. No known trauma. No hemoptysis, recent surgery, estrogen use. She does have a Nexplanon. No previous history of blood clots. No lower extremity swelling or calf pain. No chest pain or shortness of breath. Related Data Home Medications Medication Instructions Recorded Confirmed aspirin 81 mg PO DAILY 03/25/20 08/18/20 folic acid 1 mg PO DAILY 03/25/20 08/18/20 ondansetron HCl 4 mg PO PRN PRN 06/05/20 08/18/20 prenat.vits,girish,[id number] 1 tablet PO DAILY 07/20/20 07/20/20 acyclovir 800 mg PO DAILY 08/18/20 08/18/20 buspirone 10 mg PO DAILY 08/18/20 08/18/20 famotidine 20 mg PO DAILY 08/18/20 08/18/20 Allergies Allergy/AdvReac Type Severity Reaction Status Date / Time No Known Allergies Allergy Verified 12/03/20 21:57 Review of Systems Review of Systems: All systems reviewed & are unremarkable except as noted in HPI and below Constitutional: Constitutional: Denies chills and Denies fever(s) Cardiovascular: Cardiovascular: Denies chest pain, Denies chest pain with activity, Denies claudication and Denies leg edema Respiratory: Respiratory: Denies chest congestion, Denies cough, Denies hemoptysis and Denies dyspnea [facility] Past Medical History Medical History (Updated 12/04/20 @ 01:03 by Cabrera Ely MD) Anxiety Depression GERD (gastroesophageal reflux disease) Gestational diabetes mellitus (GDM) affecting first HSV (herpes simplex virus) infection 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 HEAD: Normocephalic, atraumatic. CHEST: Clear to auscultation. No respiratory distress. HEART: Regular rate and rhythm. Normal peripheral pulses. EXTREMITIES: Normal range of motion. No edema. No Homans' sign. SKIN: Warm, dry, no rash. NEURO: Alert and oriented x3. PSYCH: Normal mood and affect. Course Course Emergency Course: Declined Toradol because her pain is no longer present. X-ray negative. D-dimer negative. Discharge home. Vital Signs Vital signs: Vital Signs Temperature 97.7 F 12/03/20 22:07 Pulse Rate 97 12/03/20 22:07 Respiratory Rate 18 12/03/20 22:07 Blood Pressure 125/76 12/03/20 22:07 Pulse Oximetry 100 12/03/20 22:07 Temperature 97.7 F 12/03/20 22:07 Pulse Rate 89 12/04/20 01:00 Respiratory Rate 20 12/04/20 01:00 Blood Pressure 115/81 12/04/20 01:00 Pulse Oximetry 100 12/04/20 01:00 Medical Decision Making Vital Signs Vital Signs: Vital Signs Temperature 97.7 F 12/03/20 22:07 Pulse Rate 97 12/03/20 22:07 Respiratory Rate 18 12/03/20 22:07 Blood Pressure 125/76 12/03/20 22:07 Pulse Oximetry 100 12/03/20 22:07 Temperature 97.7 F 12/03/20 22:07 Pulse Rate 89 12/04/20
[2020-12-04 01:00] VITALS: BP 115/81; PULSE 89; RESP 20; O2SAT 100
== END 2020-12-04 01:43 | disposition home or self-care (01) ==
PROVIDERS: Emergency Provider Emergency Medicine
DX: R07.89 Other chest pain (principal); K21.9 Gastro-esophageal reflux disease without esophagitis; F41.9 Anxiety disorder, unspecified; F32.9 Major depressive disorder, single episode, unspecified; Z79.82 Long term (current) use of aspirin; R94.31 Abnormal electrocardiogram [ECG] [EKG]
CPT/HCPCS: 36415; 71045; 85380; 93005; 99283

== ENCOUNTER 2022-05-31 12:59 | Emergency (ER) | payer OTHER, SELFPAY ==
[2022-05-31 13:01] VITALS: BP 126/66; PULSE 87; RESP 16; TEMP 36.6; O2SAT 99
[2022-05-31 13:18] LABS: Appearance Urine Cloudy (Clear); Bilirubin Urine 1+ (Negative); Blood Urine Negative (Negative); Color Urine Yellow (Yellow); Glucose Urine UA Negative (Negative); Ketones Urine 1+ mg/dL (Negative); Leukocyte Esterase Ur 1+ LEU/UL (Negative); Nitrate Urine Negative (Negative); Protein Urine 2+ mg/dL (Negative); Specific Grav Ur >= 1.030 (1.001-1.035); pH Urine 5.5 (5.0-9.0)
[2022-05-31 13:29] LABS: Bacteria Urine Trace /hpf; Mucus Urine Heavy /lpf; Squamous Epithelial Cell Urine Many /hpf (Few); WBC Urine 31-50 /hpf
[2022-05-31 13:37] LABS: Add Urine Microscopic? YES
--- NOTE | 2022-05-31 14:28 | ED.FEMALEGU ---
HPI - Female Genitourinary General Chief complaint: Urogenital-Female Stated complaint: UTI symptoms Time Seen by Provider: 05/31/22 13:10 Source: patient Mode of arrival: ambulatory Limitations: no limitations History of Present Illness HPI Narrative: This is a 26 year old female that presents to the ER for dysuria. Ongoing since last night. Associated with dysuria and urinary frequency. Reports no concern for STDs. Denies fever, vomiting, flank pain, or hematuria. Related Data Home Medications Medication Instructions Recorded Confirmed aspirin 81 mg tablet,delayed 81 mg PO DAILY 03/25/20 08/18/20 release folic acid 1 mg tablet 1 mg PO DAILY 03/25/20 08/18/20 ondansetron HCl 4 mg tablet 4 mg PO PRN PRN Nausea 06/05/20 08/18/20 prenat.vits,girish,[id number] 1 tablet PO DAILY 07/20/20 07/20/20 acyclovir 800 mg tablet 800 mg PO DAILY 08/18/20 08/18/20 buspirone 10 mg tablet 10 mg PO DAILY 08/18/20 08/18/20 famotidine 20 mg tablet 20 mg PO DAILY 08/18/20 08/18/20 Allergies Allergy/AdvReac Type Severity Reaction Status Date / Time No Known Allergies Allergy Verified 05/31/22 13:09 Review of Systems Review of Systems: CONSTITUTIONAL: Denies fever GASTROINTESTINAL: Denies abdominal pain, nausea, vomiting GENITOURINARY: Reports dysuria. Denies hematuria. 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 , antepartum Migraines Surgical History Surgical History No history of previous surgery Family History Family History Mother Hypertension Diabetes mellitus Social History Social History (Updated 08/18/20 @ 15:46 by Blaze Amos MD) Smoking status: Never smoker Alcohol intake: never Substance use: former Substance use type: does not use Gender identity (if verbalized by the patient): Female Sexual Orientation (if Verbalized by the Patient): Straight or Heterosexual Spiritual care concerns: No Agree to blood products: Yes Exam Narrative: GENERAL: Well-appearing, well-nourished, and in no acute distress. HEAD: Normocephalic, atraumatic. EYES: EOMI. CHEST: Clear to auscultation. No respiratory distress. No wheezes rales or rhonchi HEART: Regular rate and rhythm. No murmur heard. Normal peripheral pulses. ABDOMEN: Soft, nondistended. No CVA tenderness EXTREMITIES: Normal range of motion. No edema. SKIN: Warm, dry, no rash. NEURO: No focal deficits. Alert and oriented x3. PSYCH: Normal mood and affect Course Vital Signs Vital signs: Vital Signs Temperature 98 F 05/31/22 13:01 Pulse Rate 87 05/31/22 13:01 Respiratory Rate 16 05/31/22 13:01 Blood Pressure 126/66 05/31/22 13:01 Pulse Oximetry 99 05/31/22 13:01 Oxygen Delivery Room Air 05/31/22 13:01 Temperature 98 F 05/31/22 13:01 Pulse Rate 87 05/31/22 13:01 Respiratory Rate 16 05/31/22 13:01 Blood Pressure 126/66 05/31/22 13:01 Pulse Oximetry 99 05/31/22 13:01 Oxygen Delivery Room Air 05/31/22 13:01 MDM - Female Genitourinary MDM Narrative Medical decision making narrative: Patient presents to the ER for urinary symptoms ongoing since last night. Reports dysuria and urinary frequency. Denies fever, vomiting, or flank pain. She is afebrile and nontoxic-appearing. No CVA tenderness on exam. UA is consistent with infection. Patient denies any concern for STDs. Will be started on oral antibiotics. Is to follow-up with primary provider. She was given warnings to return to the ER Lab Data Attestation: I reviewed the devante
== END 2022-05-31 14:49 | disposition home or self-care (01) ==
PROVIDERS: Emergency Provider Emergency Medicine; PCP Physician Assistant
DX: N30.00 Acute cystitis without hematuria (principal); K21.9 Gastro-esophageal reflux disease without esophagitis; F41.9 Anxiety disorder, unspecified; F32.A Depression, unspecified; Z79.82 Long term (current) use of aspirin
CPT/HCPCS: 81001; 81025; 87086; 87088; 99283

== ENCOUNTER 2022-08-24 13:53 | Emergency (ER) | payer OTHER, SELFPAY ==
[2022-08-24 13:55] VITALS: BP 131/79; PULSE 102; RESP 18; TEMP 36.4; O2SAT 100
[2022-08-24 14:30] LABS: Appearance Urine Cloudy (Clear); Bilirubin Urine 2+ (Negative); Blood Urine Negative (Negative); Color Urine Yellow (Yellow); Glucose Urine UA Negative (Negative); Ketones Urine 2+ mg/dL (Negative); Leukocyte Esterase Ur 1+ LEU/UL (Negative); Nitrate Urine Negative (Negative); Protein Urine 1+ mg/dL (Negative); Specific Grav Ur >= 1.030 (1.001-1.035)
[2022-08-24 14:36] LABS: Bacteria Urine Trace /hpf; Mucus Urine Heavy /lpf; Squamous Epithelial Cell Urine Many /hpf (Few)
[2022-08-24 14:39] LABS: Add Urine Microscopic? YES
[2022-08-24 15:42] VITALS: BP 119/71; PULSE 91; RESP 15; TEMP 36.9; O2SAT 100
--- NOTE | 2022-08-24 16:28 | ED.GENADULT ---
HPI - General Adult General Chief complaint: Urogenital-Female Stated complaint: STD screen Time Seen by Provider: 08/24/22 15:39 History of Present Illness HPI narrative: 26-year-old female presented to the emergency department for evaluation of vaginal discharge and painful urination. Patient states symptoms started just a few days ago. Patient did find out that her partner tested positive for trichomoniasis. Patient states that a few weeks ago she did have a positive home test. Patient is going to follow-up with OB as outpatient. Related Data Home Medications Medication Instructions Recorded Confirmed aspirin 81 mg tablet,delayed 81 mg PO DAILY 03/25/20 08/18/20 release folic acid 1 mg tablet 1 mg PO DAILY 03/25/20 08/18/20 ondansetron HCl 4 mg tablet 4 mg PO PRN PRN Nausea 06/05/20 08/18/20 prenat.vits,girish,[id number] 1 tablet PO DAILY 07/20/20 07/20/20 acyclovir 800 mg tablet 800 mg PO DAILY 08/18/20 08/18/20 buspirone 10 mg tablet 10 mg PO DAILY 08/18/20 08/18/20 famotidine 20 mg tablet 20 mg PO DAILY 08/18/20 08/18/20 Allergies Allergy/AdvReac Type Severity Reaction Status Date / Time No Known Allergies Allergy Verified 05/31/22 13:09 Review of Systems Review of Systems: CONSTITUTIONAL: Denies fever, chills, or sweats. EYES: Denies visual changes, redness, or discharge. ENT: Denies rhinorrhea, congestion, sore throat, or otalgia. CARDIOVASCULAR: Denies chest pain, palpitations, or edema. RESPIRATORY: Denies cough or dyspnea. GASTROINTESTINAL: Denies abdominal pain, nausea, vomiting, or diarrhea. GENITOURINARY: Burning with urination, vaginal discharge, see HPI SKIN: Denies rash or itching. MUSCULOSKELETAL: Denies back pain, joint pain, or myalgia. NEUROLOGIC: Denies headache, numbness, or weakness. 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 , antepartum Migraines Surgical History Surgical History No history of previous surgery Family History Family History Mother Hypertension Diabetes mellitus Social History Social History (Updated 08/18/20 @ 15:46 by Blaze Amos MD) Smoking status: Never smoker Alcohol intake: never Substance use: former Substance use type: does not use Living arrangements: with family Occupation/Education: unemployed Gender identity (if verbalized by the patient): Female Sexual Orientation (if Verbalized by the Patient): Straight or Heterosexual Spiritual care concerns: No Agree to blood products: Yes Exam Narrative: APPEARANCE: Well appearing, no pain, no distress, well-nourished. HEAD: normocephalic, atraumatic. EYES: PERRLA/EOMI, conjunctivae clear. NOSE: Normal no drainage NECK: Supple. No adenopathy, no masses. RESPIRATORY: Airway patent, respirations nonlabored. Clear to auscultation bilaterally, no rales, rhonchi, wheezing. CARDIOVASCULAR: Regular rate and rhythm without murmurs rubs or gallops. ABDOMINAL: Soft, nontender, nondistended, normal bowel sounds Vaginal exam: Thick white vaginal discharge, no cervical friability MUSCULOSKELETAL: Moves all extremities. Strength/ROM intact, No edema, No calf tenderness. NEURO: Alert. Cranial nerves II through XII intact. Grossly intact SKIN: Warm, dry. Normal Color Course Course Emergency Course: Patient was negative for trichomonas. Urine was concerning for urinary tract infection as well. Patient was treated with 500 mg IM Rocephin, p.o. Doxy and patient was discharged home with p.o. Doxy and then p.o. Keflex for the urinary tract infection. Patient was informed that she was being treat
[2022-08-24] MEDS: cefTRIAXone 1 GM VIAL 0.5 GM IM (17:11)
[2022-08-24] MEDS: DOXYCYCLINE HYCLATE 100 MG TABLET PO (17:12)
== END 2022-08-24 18:12 | disposition home or self-care (01) ==
PROVIDERS: Emergency Provider Emergency Medicine; PCP Physician Assistant
DX: O23.40 Unspecified infection of urinary tract in pregnancy, unspecified trimester (principal); O99.891 Other specified diseases and conditions complicating pregnancy; N89.8 Other specified noninflammatory disorders of vagina; O99.341 Other mental disorders complicating pregnancy, first trimester; F41.9 Anxiety disorder, unspecified; F32.A Depression, unspecified; Z79.82 Long term (current) use of aspirin; Z3A.00 Weeks of gestation of pregnancy not specified
CPT/HCPCS: 81001; 81025; 87070; 87086; 87088; 87491; 87591; 87808; 96372; 99284; A9270; J0696

== ENCOUNTER 2023-01-24 09:23 | Observation (INO) | payer OTHER, SELFPAY ==
[2023-01-24 10:00] VITALS: BP 110/66; PULSE 86
--- NOTE | 2023-01-24 10:02 | OBADM ---
This patient, Anna Dubois, admitted to the OB room OB Post [facility] for observation. Patient/family oriented to hospital policies and general routines including ID bracelet, bed and alarms, visiting hours, pain management, procedures, bathroom and other care routines, personal items, smoking policy, room service/diet, and visiting hours. Patient/Family are encouraged to report perceived risks to care and to ask questions if they do not understand what they are told or what they should do.
[2023-01-24 10:16] VITALS: BP 93/52; PULSE 82
[2023-01-24 10:30] VITALS: BP 102/59; PULSE 66
[2023-01-24 10:46] VITALS: BP 102/63; PULSE 81
[2023-01-24 10:53] LABS: Appearance Urine Cloudy (Clear); Bacteria Urine 3+ /hpf; Bilirubin Urine Negative (Negative); Blood Urine Negative (Negative); Color Urine Yellow (Yellow); Glucose Urine UA Negative (Negative); Ketones Urine Negative (Negative); Leukocyte Esterase Ur 2+ LEU/UL (Negative); Need Manual Microscopic Reviewed; Nitrate Urine Negative (Negative); Non Pathogenic Casts 0-2; Protein Urine Negative (Negative); RBC Urine 0-2 /hpf (0-2); Specific Grav Ur 1.014 (1.001-1.035); Squamous Epithelial Cell Urine Few /hpf (Few); WBC Urine 0-5 /hpf; pH Urine 7.5 (5.0-9.0)
[2023-01-24 10:57] LABS: Add Urine Microscopic? YES
[2023-01-24 11:01] VITALS: BP 120/66; PULSE 87
--- NOTE | 2023-01-24 11:03 | P.PNOB_ITS ---
OB - Triage/Final Diagnosis Visit Information Date of evaluation: 01/24/23 Reason for evaluation: threatened labor Comments/Additional reasons for admission: I have assessed the risk for this patient, Anna Dubois, and determined that she would benefit from observation care. Evaluation Laboratory results: Laboratory Tests 01/24/23 09:55 Urine Color Yellow Urine Appearance Cloudy H Urine pH 7.5 Ur Specific [place] 1.014 Urine Protein Negative Urine Glucose (UA) Negative Urine Ketones Negative Ur Blood (Man) Negative Urine Nitrate Negative Urine Bilirubin Negative Urine Urobilinogen 1.0 Add Ur Microanalysis Reviewed Leukocyte Esterase Rfl 2+ H Urine RBC 0-2 Urine WBC 0-5 Ur Squamous Epith Cells Few Urine Bacteria 3+ H Urine Casts 0-2 Vital signs: Vital Signs - 24 hr 01/24/23 10:01 01/24/23 10:00 01/24/23 10:16 Pulse Rate 86 82 Blood Pressure 110/66 93/52 L Oxygen Delivery Room Air 01/24/23 10:30 01/24/23 10:46 01/24/23 11:01 Pulse Rate 66 81 87 Blood Pressure 102/59 L 102/63 120/66 Oxygen Delivery
[2023-01-24] MEDS: FLUCONAZOLE 150 MG TABLET PO (11:15)
== END 2023-01-24 11:43 | disposition home or self-care (01) ==
PROVIDERS: Admitting Provider Student in an Organized Health Care Education/Training Program; PCP Physician Assistant; Visit Provider Student in an Organized Health Care Education/Training Program
DX: O47.1 False labor at or after 37 completed weeks of gestation (principal); Z3A.37 37 weeks gestation of pregnancy
CPT/HCPCS: 81001; A9270; G0378; G0379

== ENCOUNTER 2023-03-27 19:40 | Outpatient (CLI) | payer OTHER, SELFPAY ==
[2023-03-27 20:25] VITALS: BP 112/72; PULSE 77
== END 2023-03-27 20:50 | disposition home or self-care (01) ==
LOC: ANHOBOP 20:31 → ANHOBPP 04-03 06:22
PROVIDERS: PCP Physician Assistant; Visit Provider Obstetrics & Gynecology
DX: O42.92 Full-term premature rupture of membranes, unspecified as to length of time between rupture and onset of labor (principal); Z3A.37 37 weeks gestation of pregnancy
CPT/HCPCS: 59025; 84112; 99199

== ENCOUNTER 2023-03-30 23:17 | Observation (INO) | payer OTHER, SELFPAY ==
[2023-03-31 02:00] VITALS: RESP 16; TEMP 36.8
--- NOTE | 2023-03-31 02:13 | PC.NURSE ---
Dr. Love updated on maternal and assessments including; FHT, contractions and vital signs. Patient reporting active movement at present time and denies any pain or contractions. Discharge orders received.
--- NOTE | 2023-03-31 02:31 | PC.NURSE ---
Discharge instructions reviewed with patient. Patient states understanding of all discharge instructions and education. Labor precautions reviewed with patient. Patient provided with a kick counts educational handout prior to discharge. Patient states understanding and denies questions. Patient denies any pain or contractions at time of discharge and is reporting active movement.
--- NOTE | 2023-04-27 11:21 | PM.OBTRLD ---
OB - Triage/Final Diagnosis Visit Information Comments/Additional reasons for admission: I have assessed the risk for this patient, Anna Dubois, and determined that she would benefit from observation care. Final Diagnosis (1) False labor: Code(s): O47.9 - False labor, unspecified Status: Acute
== END 2023-03-31 02:31 | disposition home or self-care (01) ==
PROVIDERS: Admitting Provider Obstetrics & Gynecology; PCP Physician Assistant; Visit Provider Obstetrics & Gynecology
DX: O47.9 False labor, unspecified (principal)
CPT/HCPCS: G0378; G0379

== ENCOUNTER 2023-04-06 12:40 | Outpatient (CLI) | payer OTHER, SELFPAY ==
[2023-04-06 13:11] VITALS: BP 101/62; PULSE 69
[2023-04-06 13:15] VITALS: BP 104/63; PULSE 62
[2023-04-06 13:20] LABS: Basophils Percent Auto 0.4 % (0.2-1.2); Eosinophils Absolute Auto 0.1 K/mm3 (0-0.3); Eosinophils Percent Auto 0.6 % (0-4.4); Hematocrit 36.2 % (37.0-47.0); Immature Granulocyte Absolute 0.02 K/mm3 (0.00-0.031); Immature Granulocyte Percent A 0.3 % (0-0.5); Lymphocytes Percent Auto 22.9 % (18.3-44.2); Mean Corpuscular HGB Conc 33.1 g/dl (32-36); Mean Corpuscular Hemoglobin 29.3 pg (26-34); Mean Corpuscular Volume 88.5 fl (80-100); Mean Platelet Volume 11.1 fl (7.4-10.4); Monocytes Absolute Auto 0.4 K/mm3 (0.1-0.6); Neutrophils Absolute Auto 5.6 K/mm3 (1.3-6.7); Neutrophils Percent Auto 70.8 % (45.5-73.1); Platelet Count Result 271 k/mm3 (150-375); Red Blood Count 4.09 M/mm3 (4.2-5.4); Red Cell Distribution Width 12.8 % (11.5-14.5); White Blood Count 7.9 K/mm3 (4.5-10.0)
[2023-04-06 13:23] LABS: Appearance Urine Cloudy (Clear); Bacteria Urine 1+ /hpf; Bilirubin Urine Negative (Negative); Blood Urine Negative (Negative); Color Urine Yellow (Yellow); Glucose Urine UA Negative (Negative); Ketones Urine 2+ mg/dL (Negative); Leukocyte Esterase Ur 2+ LEU/UL (NEGATIVE); Nitrate Urine Negative (Negative); Non Pathogenic Casts 0-2; Protein Urine Negative (Negative); Specific Grav Ur 1.018 (1.001-1.035); Squamous Epithelial Cell Urine Few /hpf (Few); WBC Urine 21-50 /hpf (0-3); pH Urine 7.5 (5.0-9.0)
[2023-04-06 13:24] LABS: Creatinine Urine 144.2 mg/dL
[2023-04-06 13:31] VITALS: BP 101/59; PULSE 57
[2023-04-06 13:31] LABS: Alanine Aminotransferase 11 U/L (6-35); Albumin Level 3.7 g/dL (3.5-5.1); Alkaline Phosphatase 189 U/L (38-126); Anion Gap 6 mmol/L (8-16); Aspartate Amino Transferase 19 U/L (14-36); Bilirubin,Total 0.6 mg/dL (0.2-1.3); Blood Urea Nitrogen 6 mg/dL (7-17); Calcium 8.9 mg/dL (8.4-10.2); Carbon Dioxide 22 mmol/L (22-30); Chloride 104 mmol/L (98-107); Estimated Glomerular Filt Rate > 60; Glucose 76 mg/dL (65-110); Potassium 3.7 mmol/L (3.4-5.0); Sodium 132 mmol/L (137-145); Uric Acid 5.9 mg/dL (2.5-7.5)
[2023-04-06 13:33] LABS: Total Protein Urine Random < 5 mg/dL; Ur Ttl Prot Creatinine Ratio < 0.03 mg/mg (0-0.20)
[2023-04-06 13:37] LABS: Add Urine Microscopic? YES
[2023-04-06] MEDS: ACETAMINOPHEN 500 MG TABLET 1000 MG PO (13:44)
[2023-04-06] MEDS: CAFFEINE 200 MG TABLET PO (13:44)
[2023-04-06 13:51] VITALS: PULSE 57
== END 2023-04-06 14:30 | disposition home or self-care (01) ==
LOC: ANHOBOP 12:51 → ANHOBPP 12:54
PROVIDERS: Visit Provider Obstetrics & Gynecology
DX: O13.9 Gestational [pregnancy-induced] hypertension without significant proteinuria, unspecified trimester (principal); Z3A.00 Weeks of gestation of pregnancy not specified
CPT/HCPCS: 36415; 59025; 80053; 81001; 82570; 84156; 84550; 85025; 87086; 99199; A9270

== ENCOUNTER 2023-04-09 05:59 | Inpatient (IN) | payer OTHER, SELFPAY ==
[2023-04-09] VITALS (127 sets, daily range): BP systolic 78–143; BP diastolic 43–117; PULSE 55–189; RESP 16; TEMP 36.2–37.2; O2SAT 88–100; BMI 31.5
--- NOTE | 2023-04-09 06:58 | WPDANESEPP ---
Anes - Eval Pre Procedure Procedure: labor epidural Date/Time: 04/09/23 06:58 Surgeon: rosalio Preop Diagnosis: pain during labor Pre Op Diagnosis: Induction of Labor Patient Data Age: 27 Gender: F Height: Weight: Allergies Allergy/AdvReac Type Severity Reaction Status Date / Time No Known Allergies Allergy Verified 05/31/22 13:09 Home Medications Medication Instructions Recorded Confirmed Type prenat.vits,girish,lto-waaf-dcnxf 1 tablet PO DAILY 07/20/20 07/20/20 History nitrofurantoin macrocrystal 100 mg 100 mg PO Q12H 7 days #14 caps 04/06/23 Rx capsule Patient hx anesthesia problems: none Family hx anesthesia problems: none Results Review: All pre-operative results and documents have been reviewed as part of the pre-operative evaluation. [facility] Past Medical History Medical History (Updated 09/05/22 @ 15:21 by Vickie Rosario CMA) Anxiety Depression GERD (gastroesophageal reflux disease) Gestational diabetes mellitus (GDM) affecting first HSV (herpes simplex virus) infection Methylenetetrahydrofolate reductase (MTHFR) deficiency affecting , antepartum Migraines Suppression of menses Surgical History Surgical History No history of previous surgery Family History Family History Mother Hypertension Diabetes mellitus Social History Social History (Updated 08/18/20 @ 15:46 by Blaze Amos MD) Smoking status: Never smoker Alcohol intake: never Substance use: never Substance use type: does not use Last use: first trimester Living arrangements: with family Occupation/Education: unemployed Gender identity (if verbalized by the patient): Female Sexual Orientation (if Verbalized by the Patient): Straight or Heterosexual Spiritual care concerns: No Agree to blood products: Yes Exam Day of Procedure 04/09/23 06:58
[2023-04-09 07:35] LABS: Basophils Percent Auto 0.4 % (0.2-1.2); Eosinophils Absolute Auto 0.1 K/mm3 (0-0.3); Hematocrit 36.2 % (37.0-47.0); Hemoglobin 12.1 g/dL (12.0-15.0); Immature Granulocyte Absolute 0.02 K/mm3 (0.00-0.031); Immature Granulocyte Percent A 0.2 % (0-0.5); Lymphocytes Absolute Auto 2.43 K/mm3 (0.9-3.2); Lymphocytes Percent Auto 30.3 % (18.3-44.2); Mean Corpuscular HGB Conc 33.4 g/dl (32-36); Mean Corpuscular Hemoglobin 29.5 pg (26-34); Mean Corpuscular Volume 88.3 fl (80-100); Mean Platelet Volume 11.1 fl (7.4-10.4); Monocytes Absolute Auto 0.6 K/mm3 (0.1-0.6); Monocytes Percent Auto 7.6 % (2.6-8.5); Neutrophils Absolute Auto 4.8 K/mm3 (1.3-6.7); Neutrophils Percent Auto 60.5 % (45.5-73.1); Platelet Count Result 270 k/mm3 (150-375); Red Cell Distribution Width 12.7 % (11.5-14.5)
[2023-04-09 07:41] LABS: Alanine Aminotransferase 12 U/L (6-35); Albumin Level 3.8 g/dL (3.5-5.1); Alkaline Phosphatase 208 U/L (38-126); Anion Gap 8 mmol/L (8-16); Aspartate Amino Transferase 23 U/L (14-36); Bilirubin,Total 0.6 mg/dL (0.2-1.3); Blood Urea Nitrogen 7 mg/dL (7-17); Calcium 9.2 mg/dL (8.4-10.2); Carbon Dioxide 21 mmol/L (22-30); Chloride 107 mmol/L (98-107); Estimated Glomerular Filt Rate > 60; Glucose 86 mg/dL (65-110); Potassium 3.7 mmol/L (3.4-5.0); Sodium 136 mmol/L (137-145)
[2023-04-09] MEDS: LACTATED RINGERS 1,000 ML 125 ML IV CONT ×2 (07:55→11:16)
[2023-04-09] MEDS: OXYTOCIN 30 UNITS/NS 500 ML 30 UNITS/500 ML BAG IV CONT (07:56)
[2023-04-09] MEDS: AMPICILLIN 2 GM/NS 100 ML 2 GM/100 ML BAG IVPB (08:05)
[2023-04-09 08:20] LABS: HIV 1/2 Ab P24 Ag Result Negative (Negative)
[2023-04-09 08:37] LABS: Hepatitis B Surface Antigen Negative (Negative)
--- NOTE | 2023-04-09 08:48 | WPDHPUPDATE1 ---
History and Physical Update Update Date/Time: 04/09/23 08:48 27-year-old multipara at term who presents for elective induction of labor. Artificial rupture membranes was performed. Clear fluid. 3 cm/ 80%/ -1. Pitocin, expectant management. History and Physical has been reviewed, including an updated exam of the patient. There are NO changes in the patient's condition. Risks, benefits, and alternatives have been discussed and questions answered. Patient agrees to proceed with procedure.
[2023-04-09] MEDS: fentaNYL CITRATE INJ (*CRX) 100 MCG/2 ML VIAL 50 MCG IV PUSH (11:28)
[2023-04-09 13:36] LABS: Rapid Plasma Reagin Non-Reactive (NonReactive)
[2023-04-09] MEDS: AMPICILLIN 1 GM/NS 50 ML 1 GM/50 ML BAG IVPB (13:41)
--- NOTE | 2023-04-09 16:27 | PM.OBPRVD ---
OB - Delivery Note Procedure Delivery date: 04/09/23 Procedure: Induction method: AROM and Per Pitocin Protocol Delivery monitor: External FHT and Internal Uterine Route of delivery: Episiotomy description: None Laceration Description: Perineal - 2nd Degree Delivery repair: vicryl Quantitative Blood Loss (ml): 300 Anesthesia type: Epidural Disposition: Floor Baby Date of : 04/09/23 Time of : 16:11 Weeks of gestation at delivery: 39 gender: Female score one minute: 9 score five minutes: 9
[2023-04-09] MEDS: OXYTOCIN 30 UNITS/NS 500 ML 30 UNITS/500 ML BAG 125 UNITS IV CONT (16:43)
[2023-04-09] MEDS: ACETAMINOPHEN 500 MG TABLET 1000 MG (17:46)
--- NOTE | 2023-04-09 18:49 | OBPPTRN ---
Patient transferred to post room # 280 via wheelchair. Support person present. Oriented to unit, room, information board, rooming in, admission packet and security measures. Patient verbalizes understanding.
[2023-04-09] MEDS: IBUPROFEN 600 MG TABLET PO (21:00)
[2023-04-10 04:00] VITALS: BP 101/73; PULSE 55; RESP 16; TEMP 36.6; O2SAT 100
[2023-04-10 04:24] LABS: Hematocrit 30.5 % (37.0-47.0); Hemoglobin 9.7 g/dL (12.0-15.0)
[2023-04-10 07:30] VITALS: BP 103/53; PULSE 68; RESP 16; TEMP 36.2; O2SAT 100
--- NOTE | 2023-04-10 07:50 | PM.OBPNVD ---
OB - PN: Subj Subjective Date/time seen: 04/10/23 07:50 Patient comments: no complaints, pain well controlled, incisional pain, tolerating diet and flatus present OB - PN: Obj Data Labs 04/10/23 04:01 04/09/23 06:40 Labs: Laboratory Results - last 24 hr 04/09/23 04/09/23 04/10/23 06:39 06:40 04:01 Hgb 9.7 L Hct 30.5 L RPR Non-reactive Hep Bs Antigen Negative HIV 1&2 Ab/P24 Ag 4thGn Negative Rubella IgG Antibody 10.0 Blood Type B Positive Antibody Screen Negative OB - PN A/P Plan day: 1 Plan: routine care Comments: No problems, routine care Time Spent With Patient Time: Total time spent is greater than 50% in coordination of care (as documented) at patient's floor/unit and/or counseling patient: Exam Const: General: comfortable, no acute distress and alert Resp: Effort & Inspection: normal respiratory effort Auscultation: no crackles, no rales and no rhonchi Cardio: Rate: regular rate Heart sounds: no click, no murmurs and no rubs GI: Inspection: non-distended GI Palp: No Tenderness to palpation present (GI) Auscultation: normal bowel sounds Other: Incision - CDI Extrem: General: normal to inspection, no pedal edema and no calf tenderness
[2023-04-10] MEDS: IBUPROFEN 600 MG TABLET PO ×2 (08:25→19:10)
[2023-04-10] MEDS: MULTIVIT/MIN/PREN/FOL AC/IRON TABLET 1 TAB PO (08:25)
[2023-04-10] MEDS: POLYSACCHARIDE IRON COMPLEX 150 MG CAPSULE PO ×2 (08:25→19:10)
[2023-04-10] MEDS: DOCUSATE SODIUM 100 MG CAPSULE PO ×2 (08:26→19:10)
[2023-04-10 12:00] VITALS: BP 98/53; PULSE 57; RESP 16; TEMP 36.8; O2SAT 99
--- NOTE | 2023-04-10 12:40 | WPDANLDPN2 ---
Anes-Prog Note L&D Date/Time: 04/10/23 12:40 Comfortable throughout: labor and delivery Neuraxial method: epidural Epidural/Spinal procedure site: clean & non-tender Neuro status: Neuro function grossly intact. Cardiovascular status: normal Respiratory status: normal Airway patency: baseline Mental status: baseline Post-Op hydration status: normal Vital Signs: Last Vital Signs Temp 98.2 F 04/10/23 12:00 Pulse 57 L 04/10/23 12:00 Resp 16 04/10/23 12:00 BP 98/53 L 04/10/23 12:00 Pulse Ox 99 04/10/23 12:00 O2 Del Method Room Air 04/10/23 04:00 Pain score (VAS): 0 Post-procedural complaints: none Patient feedback: Patient satisfied with anesthetic care.
[2023-04-10 19:10] VITALS: BP 99/61; PULSE 69; RESP 16; TEMP 36.3
[2023-04-10] MEDS: WITCH HAZEL 40 PADS 1 PAD TOPICAL (19:10)
--- NOTE | 2023-04-10 19:10 | PC.NURSE ---
Willi Perales RN, has looked over and agrees with the charting that Gabriel Zeng RN License pending, has completed.
[2023-04-11 07:10] VITALS: BP 109/69; PULSE 61; RESP 14; TEMP 36.7; O2SAT 100
[2023-04-11] MEDS: DOCUSATE SODIUM 100 MG CAPSULE PO (07:20)
[2023-04-11] MEDS: POLYSACCHARIDE IRON COMPLEX 150 MG CAPSULE PO (07:20)
--- NOTE | 2023-04-11 07:20 | PM.OBPNVD ---
OB - PN: Subj Subjective Date/time seen: 04/11/23 07:20 Interval history: pp day 2 doing well d/c home OB - PN: Obj Data Labs 04/10/23 04:01 04/09/23 06:40 OB - PN A/P Plan day: 2 Plan: routine care and discharge home Time Spent With Patient Time: Total time spent is greater than 50% in coordination of care (as documented) at patient's floor/unit and/or counseling patient: Review of Systems Review of Systems: All systems reviewed & are unremarkable except as noted in HPI and below Exam Const: General: cooperative and healthy appearing Chest: Chest palpation & inspection: normal inspection of the chest Resp: Effort & Inspection: normal respiratory effort Cardio: Rate: regular rate Rhythm: regular rhythm GI: Other: soft Back/Spine/Pelvis: Back: no CVA tenderness Skin: General skin exam: normal color Neuro: General: patient oriented x3 Extrem: Right lower extremity: normal to inspection Left lower extremity: normal to inspection Psych: Appearance: grossly normal
[2023-04-11] MEDS: ACETAMINOPHEN 325 MG TABLET 650 MG PO (07:21)
--- NOTE | 2023-04-11 07:22 | PM.OBDSVD ---
DS: Admitting Diagnosis Discharge Date 04/11/23 Admitting Diagnosis IOL DS: Discharge Diagnosis Discharge Diagnosis (1) Term delivered: Code(s): O80 - Encounter for full-term uncomplicated delivery Status: Acute OB - DS: Summary OB Procedures : None OB Procedures Intrapartum: Spontaneous Vag Delivery OB Procedures: : None Time Spent with Patient Time attestation: Total time spent providing and/or coordinating discharge services: Discharge Plan Discharge Attending physician on discharge: Marlyn Love Discharging Clinician: Livia Robles Patient Disposition: Home, Self-Care Activity: pelvic rest Diet: regular Patient Instructions: Antibiotic Form, How to Stop Smoking (DC) Stand Alone Forms: General Discharge Information Follow-up/Referrals: Marlyn Love MD [Physician] - 4 Weeks Discharge Medications: New ibuprofen 600 mg Tablet 600 mg PO Q6H PRN (Reason: Cramping) Qty: 30 0RF Continued prenat.vits,girish,uxk-kvkf-edqkl Tablet 1 tablet PO DAILY Discontinued nitrofurantoin macrocrystal 100 mg Capsule 100 mg PO Q12H 7 Days Qty: 14 0RF Rx Instructions: must administer with a meal/food Date of admission: 04/09/23 05:59 Primary Care Provider: PHYSICIAN,DENTAL MOLD MAKER Admitting Provider: Marlyn Love Attending physician on admission: Marlyn Love Condition: Stable
--- NOTE | 2023-04-11 10:10 | PC.NURSE ---
On 04/11/23, the student, Norah Joshua, provided care and completed [facility] documentation on this patient. I have reviewed the student's documentation and agree with the findings.
--- NOTE | 2023-04-11 10:26 | PC.NURSE ---
Patient to view the discharge video Mother & Baby Care, The First Two Weeks online. Patient was given the opportunity and encouraged to ask questions. Patient verbalized understanding of information shared and has been given the mother/baby guide for home reference.
--- NOTE | 2023-04-11 11:50 | PC.NURSE ---
Patient's car seat that she had for her baby was not able to be used due to the straps not being able to tighten enough for the baby to be safely transported, mother was given a car seat from the hospital to have and take her baby home in.
--- NOTE | 2023-04-11 12:05 | PC.NURSE ---
Willi Perales RN, has looked over the charting that Gabriel Zeng RN License pending has completed for this patient.
[2023-04-12 09:32] VITALS: BP 111/71; PULSE 62; RESP 18; TEMP 37.1; O2SAT 99
== END 2023-04-11 12:05 | disposition home or self-care (01) | DRG 560 ==
LOC: ANHLDR 06:07 → ANHOB2 19:06
PROVIDERS: Admitting Provider Obstetrics & Gynecology; Visit Provider Obstetrics & Gynecology
DX: O70.1 Second degree perineal laceration during delivery (principal); Z37.0 Single live birth; Z3A.39 39 weeks gestation of pregnancy
CPT/HCPCS: 36415; 59025; 80053; 81001; 82570; 84156; 84550; 85014; 85018; 85025; 86592; 86703; 86762; 86850; 86900; 86901; 87086; 87340; 99199; A9270; G0432; J0290; J2590; J2795; J3010; J7120

== ENCOUNTER 2023-11-06 11:09 | Emergency (ER) | payer OTHER, MEDICAID, SELFPAY ==
[2023-11-06 11:10] VITALS: BP 113/75; PULSE 75; RESP 18; TEMP 36.9; O2SAT 100
[2023-11-06 11:47] VITALS: BP 109/68; PULSE 71; RESP 17; O2SAT 99
--- NOTE | 2023-11-06 11:53 | PC.NURSE ---
pt states they are supposed to wear glasses but they do not. denies wearing contacts. both eyes 20/50
[2023-11-06 13:56] VITALS: BP 104/60; PULSE 63; RESP 16; O2SAT 100
--- NOTE | 2023-11-06 13:58 | ED.EYEPROB ---
HPI - Eye Problem General Chief complaint: Eye Problems Stated complaint: L side facial weakness, hypoglycemic Time Seen by Provider: 11/06/23 12:20 History of Present Illness HPI Narrative: 28-year-old female present to the emergency department for evaluation for subtle swelling of her left eye. Patient states that she woke up this morning she felt her left eye was swollen and itching. 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 Since arrival to the emergency department patient reports that her swelling of her left eye has improved. Patient states he does have a mild headache. Related Data Home Medications Medication Instructions Recorded Confirmed prenat.vits,girish,kfl-wcwi-otqah 1 tablet PO DAILY 07/20/20 07/20/20 Allergies Allergy/AdvReac Type Severity Reaction Status Date / Time No Known Allergies Allergy Verified 11/06/23 13:58 Review of Systems Review of Systems: All systems reviewed & are unremarkable except as noted in HPI and below PMFSH Past Medical History Medical History (Updated 11/06/23 @ 14:02 by Christian Nelson MD) Anxiety Depression GERD (gastroesophageal reflux disease) Gestational diabetes mellitus (GDM) affecting first HSV (herpes simplex virus) infection Methylenetetrahydrofolate reductase (MTHFR) deficiency affecting , antepartum Migraines Suppression of menses Surgical History Surgical History No history of previous surgery Family History Family History Mother Hypertension Diabetes mellitus Social History Social History (Updated 08/18/20 @ 15:46 by Blaze Amos MD) Smoking status: Former smoker Tobacco type: e-cigarettes/vaping Second hand tobacco smoke exposure: No (THC) Smoking end date: 01/06/23 Additional smoking assessment comments: FOB smokes Alcohol intake: never Substance use: never Substance use type: does not use Last use: first trimester Lack of Transportation: No Lack of Food: Never True Current Housing: I Have Housing Concerned About Future Housing: No Difficulty Paying Gas/Electric Bills: No Difficulty Paying for Meds: No Currently Unemployed: No Education: High School Diploma/GED Difficulty w/ Childcare or Family Care: No Living arrangements: with family Occupation/Education: unemployed Gender identity (if verbalized by the patient): Female Sexual Orientation (if Verbalized by the Patient): Straight or Heterosexual Spiritual care concerns: No Agree to blood products: Yes Exam Narrative: APPEARANCE: Well appearing, no pain, no distress, well-nourished. HEAD: normocephalic, atraumatic. EYES: no significant edema of the left eyelid at this time. No conjunctival injection, normal visual gutierrez NOSE: Normal no drainage EARS:TMS clear with good light reflex. THROAT: Pharynx clear, no exudate. NECK: Supple. No adenopathy, no masses. RESPIRATORY: Airway patent, respirations nonlabored. Clear to auscultation bilaterally, no rales, rhonchi, wheezing. CARDIOVASCULAR: Regular rate and rhythm without murmurs rubs or gallops. ABDOMINAL: Soft, nontender, nondistended, normal bowel sounds MUSCULOSKELETAL: Moves all extremities. Strength/ROM intact, No edema, No calf tenderness. NEURO: Alert. Cranial nerves II through XII intact. negative Romberg with normal for tobacco tandem gait, toe stand and heel stand SKIN: Warm, dry. Normal Color Course Vital Signs Vital signs: Vital Signs Temperature 98.4 F 11/06/23 11:10 Pulse Rate 75 11/06/23 11:10 Respiratory Rate 18 11/06/23 11:10 Blood Pressure 113/75 11/06/23 11:10 Pulse Oximetry 100 11/06/23 11:10 Oxygen Delivery Room Air 11/06/23 11:10 Temperature 98.4 F 11/06/23 11:10 Pulse Rate 63
[2023-11-06] MEDS: KETOROLAC 30 MG/ML VIAL (*BKC) IM (13:59)
== END 2023-11-06 14:13 | disposition home or self-care (01) ==
PROVIDERS: Emergency Provider Emergency Medicine
DX: H02.846 Edema of left eye, unspecified eyelid (principal); K21.9 Gastro-esophageal reflux disease without esophagitis; Z87.891 Personal history of nicotine dependence
CPT/HCPCS: 96372; 99283; J1885